=== PATIENT | female | born 1940 | race Caucasian/White ===

== ENCOUNTER → 2018-10-09 | Outpatient (CLI) | payer MEDICARE ==
--- NOTE | 2018-10-10 11:56 | BD ---
EXAMINATION TYPE: Axial Bone Density DATE OF EXAM: 10/09/2018 COMPARISON: NONE CLINICAL HISTORY: Z 78.0 Height: 61 inches Weight: 175 FRAX RISK QUESTIONS: Alcohol (3 or more units per day): no Family History (Parent hip fracture): no Glucocorticoids (More than 3mos): no (Ex: prednisone, prednisolone, methylprednisolone, dexamethasone, and hydrocortisone). History of Fracture in Adulthood: yes, ribs from [facility] in 1993 Secondary Osteoporosis: 1. Type 1 Diabetes: no 2. Hyperthyroidism: no 3. Menopause before 45: no 4. Malnutrition: no 5. Chronic liver disease: no Rheumatoid Arthritis: no Current Tobacco Use: no RISK FACTORS HISTORY OF: Family History of Osteoporosis: unknown Active: yes Diet low in dairy products/other sources of calcium: at least one serving a day Postmenopausal woman: no Take estrogen and/or progesterone medications: no Lost more than 2 inches in height since high school: yes Frequent falls: no Poor Health: no Hyperparathyroidism: no Adrenal Insufficiency: no MEDICATIONS: Prednisone or other steroids: no Thyroid Medications: no Osteoporosis Medications: no Additional Medications: Celebrex Additional History: osteoarthritis EXAM MEASUREMENTS: Bone mineral densitometry was performed using the [employer] System. Bone mineral density as measured about the Lumbar spine is: ----- L1-L4(G/cm2): 1.305 T Score Values are as follows: ----- L2: 0.4 ----- L3: 1.4 ----- L4: 2.3 ----- L1-L4: 1.0 Bone mineral density not previously done at this facility Bone mineral density about the R hip (g/cm2): 0.736 Bone mineral density about the L hip (g/cm2): 0.768 T Score values are as follows: -----R Neck: -2.2 -----L Neck: -1.9 -----R Total: -1.2 -----L Total: -1.0 Bone mineral density not previously done at this facility IMPRESSION: Osteopenia (T Score between -2.5 and -1). There is slightly increased risk of fracture and the patient may be considered for treatment. Re-Screen 2-5 years. NOTE: T-SCORE=SD OF THE YOUNG ADULT MEAN.
--- NOTE | 2018-10-12 13:14 | MM ---
Reason for exam: screening (asymptomatic). Last mammogram was performed 3 years and 3 months ago. History: Patient is postmenopausal. Physical Findings: A clinical breast exam by your physician is recommended on an annual basis and results should be correlated with mammographic findings. MG 3D Screening Mammo W/Cad Bilateral CC and MLO view(s) were taken. Prior study comparison: July 10, 2015, mammogram, performed at [facility]. July 31, 2013, mammogram, performed at [facility]. The breast tissue is heterogeneously dense. This may lower the sensitivity of mammography. There is chronic nodularity in the left breast. There is no discrete abnormality. ASSESSMENT: Benign, BI-RAD 2 RECOMMENDATION: Routine screening mammogram of both breasts in 1 year.
== END | disposition home or self-care (01) ==
LOC: RADMAMWWP 13:17
PROVIDERS: ATTEND Internal Medicine
DX: Z12.31 Encounter for screening mammogram for malignant neoplasm of breast (principal); M85.80 Other specified disorders of bone density and structure, unspecified site; Z78.0 Asymptomatic menopausal state
CPT/HCPCS: 77063; 77067; 77080

== ENCOUNTER → 2018-11-23 | Outpatient (CLI) | payer MEDICARE ==
[2018-11-23 13:53] LABS: Basophils % (A) 0 %; Eosinophils # (A) 0.2 k/uL (0-0.7); Eosinophils % (A) 1 %; HCT 41.5 % (34.0-46.0); HGB 13.8 gm/dL (11.4-16.0); Lymphocytes # (A) 2.9 k/uL (1.0-4.8); Lymphocytes % (A) 25 %; MCH 30.6 pg (25.0-35.0); MCHC 33.3 g/dL (31.0-37.0); MCV 91.7 fL (80.0-100.0); Mean Platelet Volume 6.6; Monocytes # (A) 0.6 k/uL (0-1.0); Monocytes % (A) 5 %; Neutrophils # (A) 7.7 k/uL (1.3-7.7); Neutrophils % (A) 66 %; Platelet Count 327 k/uL (150-450); RBC 4.52 m/uL (3.80-5.40); RDW 12.7 % (11.5-15.5); WBC 11.6 k/uL (3.8-10.6)
[2018-11-23 14:03] LABS: INR 0.9 (<1.2)
[2018-11-23 14:14] LABS: Potassium 4.4 mmol/L (3.5-5.1)
== END | disposition home or self-care (01) ==
LOC: LABPAT 13:23
PROVIDERS: ATTEND Orthopaedic Surgery
DX: Z01.812 Encounter for preprocedural laboratory examination (principal); M17.12 Unilateral primary osteoarthritis, left knee; Z79.01 Long term (current) use of anticoagulants
CPT/HCPCS: 36415; 80051; 85025; 85610; 87070

== ENCOUNTER 2018-11-28 10:00 | Day surgery (SDC) | payer MEDICARE ==
--- NOTE | 2018-11-27 09:42 | HP ---
HISTORY AND PHYSICAL CHIEF COMPLAINT: Left knee pain. HISTORY OF PRESENT ILLNESS: The patient is a 78-year-old retired female who presents with progressive left knee pain over the past several years. It has worsened recently. She is having pain that limits her normal function and activities. She has tried medications in addition to previous injections. PAST MEDICAL HISTORY: Significant for arthritis, heart murmur, and hypertension. PAST SURGICAL HISTORY: Significant for right total knee arthroplasty. CURRENT MEDICATIONS: 1. Celebrex. 2. Simvastatin. 3. Avalide. ALLERGIES: She denies drug allergies. FAMILY HISTORY: Family history is negative. SOCIAL HISTORY: Social history is negative for current tobacco or alcohol use. REVIEW OF SYSTEMS: Sixteen point review of systems otherwise reviewed and is noncontributory. PHYSICAL EXAMINATION: On examination, this patient is approximately 5 feet 1 inch, 177 pounds of endomorphic habitus. HEENT exam is nonfocal. Neck is supple. She has painless passive motion of the left hip. Straight leg raise is negative. Active motion left knee -12 to 100 degrees of flexion. She is tender about the medial joint line. She has a mild effusion. Collaterals are stable, Kaila is negative, Wm's is equivocal. She has genu varum alignment. She has an antalgic gait pattern. Her distal neurovascular exam appears intact in the left lower extremity. Previous x-rays of the left knee obtained in the office show severe tricompartmental osteoarthrosis. IMPRESSION: Left knee severe tricompartmental osteoarthrosis-symptomatic. RECOMMENDATIONS: I talked to the patient at length regarding her condition along with treatment options. At this point, she is quite symptomatic and opts to proceed with surgery. We will plan to proceed with left total knee arthroplasty. We will institute DVT prophylaxis postoperatively. Risks and benefits were discussed at length in layman's terms. MMODL / IJN: [id number] /
[~2018-11-28 10:00] MED LIST: ACETAMINOPHEN TAB 500 MG TAB PO ONE; DEXAMETHASONE SOD PHOSPHATE 10 MG/ML 1 ML VIAL IV ONE; LIDOCAINE 1% 20 ML VIAL (10MG/ML) FOR IV START INTRADERMA PRN; MELOXICAM 7.5 MG TAB PO ONE; MIDAZOLAM 2 MG/2 ML VIAL IV PRN; ONDANSETRON 4 MG/2 ML VIAL IVP ONE; SCOPOLAMINE 1.5MG/72HR PATCH TRANSDERM ONE; TRANEXAMIC ACID 1,000 MG in SODIUM CHLORIDE 0.9% 100 ML IVPB ONE
[2018-11-28] MEDS: LACTATED RINGERS 1,000 ML IV SCH (10:46)
[2018-11-28] MEDS ORDERED: MIDAZOLAM (PF) 2 MG/2 ML VIAL IV ONE (10:50)
--- NOTE | 2018-11-28 11:35 | P.ANPRN ---
Procedure Note - Anesthesia - Nerve Block Performed Left Adductor Canal Infusion Time Out Performed: Yes Date of Procedure: 11/28/18 Procedure Start Time: 10:43 Procedure Stop Time: 10:55 Location of Patient Procedure: PreOp Indication: Acute Post-Operative Pain, Requested by Surgeon Sedation Type: Sedate with meaningful contact maintained Preparation: Sterile Prep, Sterile Dressing Position: Supine Catheter: Indwelling Needle Types: Pajunk Needle Gauge: 18 Ultrasound used to visualize needle placement: Yes Ultrasound used to observe medication spread: Yes Injectate: 0.5% Ropivacaine (see comment for volume) (20 ml) Blood Aspirated: No Pain Paresthesia on Injection Noted: No Resistance on Injection: Normal Image Stored and Saved: Yes Events: Uneventful and Well Tolerated
[2018-11-28] MEDS ORDERED: ROPIVACAINE 0.2%-NS ON-Q PUMP 1,090 MG, EMPTY PAIN BALL 1 EACH MISCELLANE PRN (11:43)
[2018-11-28] MEDS ORDERED: MIDAZOLAM 2 MG/2 ML VIAL ONE (12:48)
[2018-11-28] MEDS ORDERED: TRANEXAMIC ACID 1,000 MG/10 ML VIAL ONE (12:48)
[2018-11-28] MEDS ORDERED: PROPOFOL 10 MG/ML 20 ML VIAL IV ONE (12:48)
[2018-11-28] MEDS ORDERED: SODIUM CHLORIDE 0.9% 100 ML BAG ONE (12:48)
[2018-11-28] MEDS ORDERED: ceFAZolin 3,000 MG in SODIUM CHLORIDE 0.9% IRRIGATIO 3,000 ML IRRIGATION ONE (13:52)
[2018-11-28] MEDS ORDERED: ROPIVACAINE 246.25 MG, EPINEPHrine 0.5 MG, KETOROLAC 30 MG, cloNIDine HCL/PF 80 MCG, WA... MISCELLANE ONE ×5 (13:54)
[2018-11-28] MEDS ORDERED: LACTATED RINGERS 1,000 ML IV ONE ×2 (14:31)
[2018-11-28] MEDS ORDERED: ACETAMINOPHEN TAB 325 MG TAB PO PRN (14:39)
[2018-11-28] MEDS ORDERED: MAGNESIUM HYDROXIDE 2,400 MG/10 ML CUP PO PRN (14:39)
[2018-11-28] MEDS ORDERED: traMADol 50 MG TAB PO PRN (14:39)
[2018-11-28] MEDS ORDERED: NALOXONE 0.4 MG/ML 1 ML VIAL IV PRN (14:39)
[2018-11-28] MEDS ORDERED: HYDROmorphone 0.5 MG/0.5 ML SYRINGE IVP PRN ×2 (14:39)
[2018-11-28] MEDS ORDERED: ONDANSETRON 4 MG/2 ML VIAL IVP PRN (14:39)
[2018-11-28] MEDS ORDERED: HYDROcodone/APAP 5-325MG 1 EACH TAB PO PRN (14:39)
--- NOTE | 2018-11-28 15:04 | P.OP ---
Date of Procedure: 11/28/18 Preoperative Diagnosis: Left knee severe tricompartmental osteoarthrosis Postoperative Diagnosis: Same Procedure(s) Performed: Left total knee arthroplastycementedcruciate retaining Implants: Depuy Attune size 5 cemented femoral component, size 4 cemented tibial component, 9 mm articular surface, 32 mm cemented patellar component. This was a cruciate retaining implant. Anesthesia: regional, local, spinal Surgeon: Wale Julio Superintendent House #1: Jac Lofton Estimated Blood Loss (ml): 50 Pathology: other (Bone fragments) Condition: stable Disposition: PACU Indications for Procedure: The patient's a 78-year-old female who presents with progressive left knee pain secondary to osteoarthrosis despite conservative measures. A discussion of the risks and benefits of operative intervention versus continued conservative m easures was made with the patient. She opted to proceed with surgery. Operative risks to include infection, neurovascular injury, development of blood clots, possible component loosening, possible component failure and need for subsequent procedures was discussed. Informed consent was obtained. Operative Findings: As below Description of Procedure: The patient was brought to the operating room, and after induction of spinal anesthesia the left lower extremity was prepped and draped in a normal fashion. The tourniquet was inflated to 270 mmHg. A longitudinal incision extending 3 finger breaths above the superior pole of the patella extending to the medial aspect the tibial tubercle was then made. The skin and subcutaneous tissues were divided sharply. Electrocautery was used for hemostasis. A medial parapatellar arthrotomy was then performed. The medial soft tissues to include the superficial and deep portions of the medial collateral ligament as well as the medial hamstring tendons were elevated subperiosteally. The proximal medial tibia osteophytes were carefully removed. The patella was everted. The knee was flexed. A portion of the retropatellar fat pad was excised sharply. The anterior cruciate ligament was sacrificed. A starting hole was made in the distal femur 1 cm anterior to the posterior cruciate origin. An intramedullary femoral guide was gently inserted planning on 5 valgus distal cut with 9 mm distal resection. The cutting block was pinned in place. The distal cut was then made. The posterior referencing sizing guide was utilized. 3 of external rotation was built into the system and verified off the trans- epicondylar axis and the posterior condyles. I felt size 5 was most ap propriate. The cutting block was pinned in place. The anterior, posterior, and chamfer cuts were then made. The bone fragments were removed. A sulcus cut was then made with the appropriate guide. The trial size 4 femoral component was then placed and was fully seated. There was good anterior to posterior and medial to lateral fit. The distal peg holes were then drilled. The trial component was then removed. Attention was then paid towards preparing the proximal tibia. An extra medullary guide was utilized in line with the tibial shaft and second metatarsal distally. A 7 posterior slope was planned. I planned on 2 mm resection from the medial compartment. The cutting block was pinned in place. The proximal tibial cut was then made. The bone was removed in one fragment. The remnants of the medial and lateral menisci were excised the capsule junction with electrocautery. The tibia sized most appropriately at size 4. The posterior osteophytes off the distal femur were carefully removed with a curved osteotome. The trial tibial and femoral components were placed along with a 9 millimeters articular surface. I was able to obtain full flexion and extension with good stability with varus and valgus stress. After several flexion and extension cycles, the tibial rotation was marked with electrocautery in line with the medial one third of the tibial tubercle. Attention was then paid towards preparing the patella. A patella reamer was utilized taking this down to 14 mm of bone stock. A good flush cut was made. The patella sized most appropriately at 32 millimeters. The peg holes were then drilled. The trial component was placed. The knee was taken through a range of motion. I had good patellofemoral tracking with no hands technique. The trial components were then removed. The tibia was prepared in the appropriate rotation with appropriate drill and keel punch. The flexion and extension gaps were checked and felt to be symmetric. The posterior soft tissues were injected with ropivacaine. The bony surfaces were prepared with pulsatile lavage and dried. The deep tibial component was then cemented in place and was fully seated. Excess cement was removed. The femoral component was cemented in place and was fully seated. Again excess cement was removed. The trial 9 millimeters surface was then inserted in the knee was put in full extension. The patella component was cemented in place. After the cement had sufficiently hardened, the knee was again taken through a range of motion. Again there was good stability in flexion and extension with varus and valgus stress. The trial articular surface was then removed. The final articular surface was placed and was impacted. Care was taken to avoid any soft tissue interposition. Pulsatile lavage was again utilized. The tourniquet was deflated with approximately 65 minutes total tourniquet time. There was minimal drainage therefore a deep drain was not placed. The medial parapatellar arthrotomy was then closed with #2 Ethibond suture. The subcutaneous tissues were reapproximated interrupted 2-0 Vicryl sutures. The skin was reapproximated with 3-0 subarticular strata fix suture. Skin tape and adhesive was applied. A sterile dressing was applied. The patient was then awoken from sedation and transferred to recovery room in good condition. Blood loss was estimated at 50 milliliters. No complications were incurred. Sponge and needle counts were correct at the end the case. Skyler HOLGUIN assisted during the major components this case to include exposure, b one resection, and implantation.
--- NOTE | 2018-11-28 15:34 | XR ---
EXAMINATION TYPE: XR knee limited LT DATE OF EXAM: 11/28/2018 COMPARISON: NONE HISTORY: 78-year-old female evaluation for postoperative abnormality in alignment TECHNIQUE: 2 views FINDINGS: Images show placement of left total knee arthroplasty. Distal femoral and proximal tibial components of prosthesis are well seated without periprosthetic fracture. Alignment grossly anatomic. Anterior s oft tissue swelling with soft tissue air as well as its intra-articular air in joint fluid relating t o recent operation. IMPRESSION: Uncomplicated postoperative appearance left total knee arthroplasty.
[2018-11-28] MEDS: HYDROmorphone 0.5 MG/0.5 ML SYRINGE IVP PRN ×3 (15:36→16:05)
[2018-11-28 17:02] VITALS: BMI 32.8
--- NOTE | 2018-11-28 18:31 | P.CONS ---
History of Present Illness - Reason for Consult Consult date: 11/28/18 Medical management of hypertension and hyperlipidemia Requesting physician: Wale Julio - Chief Complaint Medical management of hypertension and hyperlipidemia - History of Present Illness The patient is a 78-year-old female with a past medical history of essential hypertension, dyslipidemia, severe left knee osteoarthritis that is currently admitted to primary orthopedic service under Dr. Julio and is postop day #0 after having a left total knee arthroplasty secondary to left knee severe tricompartmental osteoarthrosis. The patient doing well postop and only complains of mild tenderness in her knee, she denies any chest pain shortness of breath, she denies any nausea vomiting or abdominal pain. Patient previously had a right total knee and did well with that and fully expects to be able to go home to have home PT. Review of records indicate the patient's blood pressure is stable and controlled, currently receiving perioperative antibiotics with cefazolin, with Dilaudid and [place] as needed for pain and currently has a nerve block in the left adductor canal done by anesthesia for pain Review of Systems Pertinent positives per HPI other systems were negative Past Medical History Past Medical History: Hyperlipidemia, Hypertension, Osteoarthritis (OA) Additional Past Medical History / Comment(s): Heart murmur. "Borderline sugars, no treatment" History of Any Multi-Drug Resistant Organisms: None Reported Past Surgical History: Joint Replacement Additional Past Surgical History / Comment(s): Partial hysterectomy, right knee replacement. Past Anesthesia/Blood Transfusion Reactions: No Reported Reaction Past Psychological History: No Psychological Hx Reported Smoking Status: Never smoker Past Alcohol Use History: Occasional Past Drug Use History: None Reported - Past Family History Mother Family Medical History: No Reported History Medications and Allergies Home Medications Medication Instructions Recorded Confirmed Type Celecoxib [CeleBREX] 200 mg PO DAILY 11/24/18 11/24/18 History Irbesartan/Hydrochlorothiazide 1 each PO QAM 11/24/18 11/24/18 History [Irbesartan-Hctz 150-12.5 mg Tb] Simvastatin [Zocor] 20 mg PO QAM 11/24/18 11/24/18 History Vitamin D Gummies 1,000 units PO DAILY 11/24/18 11/24/18 History Allergies Allergy/AdvReac Type Severity Reaction Status Date / Time No Known Allergies Allergy Verified 11/24/18 10:21 Physical Exam Vitals: Vital Signs Temp Pulse Resp BP Pulse Ox 11/28/18 16:00 52 L 16 145/73 97 11/28/18 15:50 51 L 16 141/67 97 11/28/18 15:45 52 L 16 160/84 97 11/28/18 15:30 61 15 153/75 93 L 11/28/18 15:15 59 L 16 150/76 96 11/28/18 15:02 97.1 F L 58 L 16 145/74 100 11/28/18 11:19 60 16 122/60 95 11/28/18 10:24 97.8 F 72 20 129/70 95 Intake and Output 11/28/18 11/28/18 11/28/18 06:59 14:59 22:59 Intake Total 1251 0 Output Total 50 Balance 1201 0 Intake: IV 1251 0 Output: Estimated Blood Loss 50 Other: Weight 80.286 kg Constitutional: No acute distress, conversant, pleasant Eyes: Anicteric sclerae, moist conjunctiva, no lid-lag, PERRLA ENMT: NC/AT,Oropharynx clear, no erythema, exudates Neck:Supple, FROM, no masses, or JVD, No carotid bruits; No thyromegaly Lungs: Clear to auscultation, Clear to percussion, Normal respiratory effort, no accessory muscle use Cardiovascular: Heart regular in rate and rhythm, No murmurs, gallops, or rubs no peripheral edema Abdominal: Soft Nontender, nom distended, no guarding, no rebound or rigidity, Normoactive bowel sounds No hepatomegaly, No splenomegaly, No palpable mass No abdominal wall hernia noted Skin: Normal temperature, tone, texture, turgor, No induration No subcutaneous nodules, No rash, lesions, No ulcers Extremities:No digital cyanosis No clubbing, Pedal pulses intact and symm etrical Radial pulses intact and symmetrical Normal gait and station, No calf tenderness Psychiatric: Alert and oriented to person, place and time, Appropriate affect Intact judgement Neuro: Muscles Strength 5/5 in all 4 extremities, Sensation to light touch grossly present throughout, Cranial nerves II-XII grossly intact. No focal sensory deficits Assessment and Plan (1) Essential hypertension Current Visit: Yes Status: Acute Code(s): I10 - ESSENTIAL (PRIMARY) HYPERTENSION SNOMED Code(s): 02316294 (2) Hyperlipidemia Current Visit: Yes Status: Acute Code(s): E78.5 - HYPERLIPIDEMIA, UNSPECIFIED SNOMED Code(s): 91564623 (3) Status post total left knee replacement Current Visit: Yes Status: Acute Code(s): Z96.652 - PRESENCE OF LEFT ARTIFICIAL KNEE JOINT SNOMED Code(s): 3759555040843 Plan: The patient is admitted to the primary orthopedic service and is postop day #0 status post left knee arthroplasty secondary to severe left knee osteoarthrosis. We'll defer to primary team regarding ongoing analgesic therapy patient currently on Dilaudid and [place] with left adductor canal nerve block. Hemodynamically the patient is stable, we'll resume her home hypertensive regim en. The patient is continued on DOAC for DVT prophylaxis. Continue to follow along with you. Appreciate opportunity to be involved in the ongoing care of this patient. For further questions please hesitate to contact us on inpatient team Time with Patient: Greater than 30
[2018-11-28] MEDS ORDERED: SENNOSIDES-DOCUSATE SODIUM 1 EACH TAB PO SCH (21:00)
[2018-11-29] MEDS: LACTATED RINGERS 1,000 ML IV SCH (01:47)
[2018-11-29] MEDS: HYDROcodone/APAP 5-325MG 1 EACH TAB PO PRN ×2 (05:18→11:09)
[2018-11-29 07:56] LABS: Basophils % (A) 0 %; Eosinophils # (A) 0.1 k/uL (0-0.7); Eosinophils % (A) 0 %; HCT 35.3 % (34.0-46.0); HGB 11.8 gm/dL (11.4-16.0); Lymphocytes # (A) 2.1 k/uL (1.0-4.8); Lymphocytes % (A) 13 %; MCH 30.3 pg (25.0-35.0); MCHC 33.5 g/dL (31.0-37.0); MCV 90.4 fL (80.0-100.0); Mean Platelet Volume 6.4; Monocytes % (A) 7 %; Neutrophils # (A) 12.7 k/uL (1.3-7.7); Neutrophils % (A) 79 %; Platelet Count 290 k/uL (150-450); RDW 12.4 % (11.5-15.5); WBC 16.1 k/uL (3.8-10.6)
[2018-11-29 08:21] VITALS: RESP 16; TEMP 97.9
--- NOTE | 2018-11-29 08:25 | P.PN ---
Progress Note - Text Progress Note Date: 11/29/18 Patient without complaints. Pain controlled. Denies leg weakness. VSS Catheter site clean and dry A/P POD#1 s/p Left TKA with adductor catheter - doing well
[2018-11-29] MEDS ORDERED: ATORVASTATIN 10 MG TAB PO SCH (09:00)
[2018-11-29] MEDS ORDERED: RIVAROXABAN 10 MG TAB PO SCH (09:00)
[2018-11-29] MEDS ORDERED: LOSARTAN-HCTZ 50-12.5 MG 1 EACH TAB PO SCH (09:00)
--- NOTE | 2018-11-29 11:26 | P.PN ---
Subjective Progress Note Date: 11/29/18 Principal diagnosis: Status post left total knee arthroplasty Patient was evaluated at bedside, she's resting comfortably. Her pain is well- controlled. She is done well with physical therapy. She denies chest pain or shortness of breath Objective - Vital Signs Vital signs: Vital Signs Temp 97.9 F 11/29/18 07:31 Pulse 75 11/29/18 07:31 Resp 16 11/29/18 07:31 BP 151/72 11/29/18 07:31 Pulse Ox 95 11/29/18 07:31 Intake & Output 11/28/18 11/29/18 11/29/18 18:59 06:59 18:59 Intake Total 1251 Output Total 50 Balance 1201 Weight 80.286 kg Intake: IV 1251 Output: Estimated Blood Loss 50 Other: # Voids 1 - Exam Left lower extremity: Incision is clean, dry, and intact. The exofin fusion tape is in good condition. There is minimal soft tissue swelling and ecchymosis surrounding the medial and lateral aspects of the incision. Calf is soft, no tenderness with palpation. Plantar flexion, dorsiflexion, EHL, FHL are intact. Sensory exam to light touch throughout the extremity is intact, dorsal pedis pulses 2+. - Labs CBC & Chem 7: 11/29/18 07:34 Labs: Abnormal Lab Results - Last 24 Hours (Table) 11/29/18 Range/Units 07:34 WBC 16.1 H (3.8-10.6) k/uL Neutrophils # 12.7 H (1.3-7.7) k/uL Assessment and Plan Plan: Assessment: Postoperative day 1 status post left total knee arthroplasty Plan: Pain control, plan for discharge home on oral medication GI and DVT prophylaxis, plan for discharge on Eliquis 2.5mg bid for 2 weeks Wound care instructions discussed Home care nursing and physical therapy after discharge Medical recommendations Discharge planning: Patient will be discharged home today Time with Patient: Less than 30
--- NOTE | 2018-11-29 11:32 | P.DS ---
Providers Date of admission: 11/28/2018 Expected date of discharge: 11/29/18 Attending physician: Wale Julio Consults: 11/28/18 14:39 Consult Physician Routine Consulting Provider: Marlon Ray Consult Reason/Comments: medical management Do you want consulting provider notified?: Yes Primary care physician: Elio Castillo [facility] Course: Date of admission: 11/28/2018 Date of discharge: 11/29/2018 Admission diagnosis: Status post left total knee arthroplasty Discharge diagnosis: Same Attending physician: Dr. Julio Surgical procedures: Left total knee arthroplasty Brief history: Patient is a 78-year-old female with a history of progressive primary left knee osteoarthritis. At this point patient has failed conservative treatment measures and has opted to proceed with a elective left total knee arthroplasty. Hospital course: Details of patient's surgery can be found in operative report. Patient tolerated the procedure well and was subsequently transported to or [facility] floor. Patient's orthopeidc and medical care was provided daily. Patient had daily laboratory tests performed for evaluation of overall blood counts. Patient had daily physical therapy to include strengthening range of motion as well as education with walker ambulation. Patient was treated with Xarelto for their postoperative DVT prophylaxis during their inpatient stay. Patient was noted to have a relatively uneventful postoperative course. Patient reported satisfactory pain control with oral pain medications by postoperative day 0. Patient showed satisfactory progress with physical therapy. Patient moved steadily through the program and had no difficulty meeting the goals by postoperative day 1. Given patient's otherwise satisfactory course and having met physical therapy goals, plan is to discharge patient home on postoperative day 1. Discharge condition/disposition: Patient will be discharged home in stable condition. Discharge medications: Instructions are given on resumption of patient's normal daily medications per primary care recommendation, in addition patient will be prescribed . Discharge instructions: 1. Wound care and infection precautions, keep incision dry and covered while showering, no lotions, creams, moisturizers. No soaking, tubs, pools, hottubs. Do not scrub over the incision. 2. Weight-bear as tolerated with walker / cane until follow-up. 3. Ice and elevate when necessary. Do not exceed 20 minutes per hour with ice pack. 4. Utilize compression sleeve until seen at first follow up appointment. 5. Visiting nursing care. 6. Home physical therapy. 7. Pain meds and anticoagulants per prescription. 8. Pain medication has potential to cause constipation. Increase oral fluid and fiber intake. Contact primary care provider if you have not had a bowel movement within 48 hours after discharge 9. No anti-inflammatory medication until discussed at first post operative visit, this including Motrin, Aleve, Mobic, Diclofenac. 10. Follow up in office at 2 weeks postop with Skyler Lofton PA-C 11. Follow up with your primary care doctor 7-10 days after discharge. 12. Contact [facility] with any questions, . Procedures: Left total knee arthroplasty Patient Condition at Discharge: Good Plan - Discharge Summary Discharge Rx Participant: Yes New Discharge Prescriptions: New Docusate [Colace] 100 mg PO DAILY #30 capsule Apixaban [Eliquis] 2.5 mg PO BID #60 tab Hydrocodone/Acetaminophen [[place] 5-325] 1 - 2 each PO Q6HR PRN #40 tab PRN Reason: Pain No Action Simvastatin [Zocor] 20 mg PO QAM Celecoxib [CeleBREX] 200 mg PO DAILY Vitamin D Gummies 1,000 units PO DAILY Irbesartan/Hydrochlorothiazide [Irbesartan-Hctz 150-12.5 mg Tb] 1 each PO QAM Discharge Medication List Celecoxib [CeleBREX] 200 mg PO DAILY 11/24/18 [History] Irbesartan/Hydrochlorothiazide [Irbesartan-Hctz 150-12.5 mg Tb] 1 each PO QAM 11/24/18 [History] Simvastatin [Zocor] 20 mg PO QAM 11/24/18 [History] Vitamin D Gummies 1,000 units PO DAILY 11/24/18 [History] Apixaban [Eliquis] 2.5 mg PO BID #60 tab 11/29/18 [Rx] Docusate [Colace] 100 mg PO DAILY #30 capsule 11/29/18 [Rx] Hydrocodone/Acetaminophen [[place] 5-325] 1 - 2 each PO Q6HR PRN #40 tab 11/29/18 [Rx] Follow up Appointment(s)/Referral(s): [facility], [NON-STAFF] - Jac Lofton PAC [PHYSICIAN ELECTRICIAN TELEPHONE] - 2 Weeks Activity/Diet/Wound Care/Special Instructions: Orthopedic Discharge Instructions: 1. Wound care and infection precautions, keep incision dry and covered while showering, no lotions, creams, moisturizers. No soaking, pools, hot tubs. Do not scrub over incision. 2. Weight-bear as tolerated with walker / cane until follow-up. 3. Ice and elevate when necessary. Do not exceed 20 minutes per hour with ice pack. 4. Utilize compression sleeve until seen at first follow up appointment. 5. Pain meds and anticoagulants per prescription. 6. Pain medication has potential to cause constipation. Increase oral fluid and fiber intake. Contact primary care provider if you have not had a bowel movement within 48 hours after discharge. 7. No anti-inflammatory medication until discussed at first post operative visit, this including Motrin, Aleve, Mobic, Diclofenac. 8. Follow up in office at 2 weeks postop with Skyler Lofton PA-C 9. Follow up with your primary care doctor 7-10 days after discharge. 10. Contact [facility] with any questions, . Discharge Disposition: HOME WITH HOME HEALTH SERVICES
--- NOTE | 2018-11-29 12:50 | P.PN ---
Subjective Progress Note Date: 11/29/18 Patient seen and examined and follow-up, doing much better today. Reporting that she's been up and and with her the walker ambulating to the bathroom and back and down the halls, and catheter in place reporting that her pain is controlled with [place]. No acute events overnight denies chest pain or shortness of breath Objective - Vital Signs Vital signs: Vital Signs Temp 97.9 F 11/29/18 07:31 Pulse 75 11/29/18 07:31 Resp 16 11/29/18 07:31 BP 151/72 11/29/18 07:31 Pulse Ox 95 11/29/18 07:31 Intake & Output 11/28/18 11/29/18 11/29/18 18:59 06:59 18:59 Intake Total 1251 Output Total 50 Balance 1201 Weight 80.286 kg Intake: IV 1251 Output: Estimated Blood Loss 50 Other: # Voids 1 - Exam Constitutional: No acute distress, conversant, pleasant Eyes: Anicteric sclerae, moist conjunctiva, no lid-lag, PERRLA ENMT: NC/AT,Oropharynx clear, no erythema, exudates Neck:Supple, FROM, no masses, or JVD, No carotid bruits; No thyromegaly Lungs: Clear to auscultation, Clear to percussion, Normal respiratory effort, no accessory muscle use Cardiovascular: Heart regular in rate and rhythm, No murmurs, gallops, or rubs no peripheral edema Abdominal: Soft Nontender, nom distended, no guarding, no rebound or rigidity, Normoactive bowel sounds No hepatomegaly, No splenomegaly, No palpable mass No abdominal wall hernia noted Skin: Normal temperature, tone, texture, turgor, No induration No subcutaneous nodules, No rash, lesions, No ulcers Extremities:No digital cyanosis No clubbing, Pedal pulses intact and symmetrical Radial pulses intact and symmetrical Normal gait and station, No calf tenderness Psychiatric: Alert and oriented to person, place and time, Appropriate affect Intact judgement Neuro: Muscles Strength 5/5 in all 4 extremities, Sensation to light touch grossly present throughout, Cranial nerves II-XII grossly intact. No focal sensory deficits - Labs CBC & Chem 7: 11/29/18 07:34 Labs: Abnormal Lab Results - Last 24 Hours (Table) 11/29/18 Range/Units 07:34 WBC 16.1 H (3.8-10.6) k/uL Neutrophils # 12.7 H (1.3-7.7) k/uL Assessment and Plan (1) Essential hypertension Narrative/Plan: * Blood pressure stable and controlled * Continue current regimen Current Visit: Yes Status: Acute Code(s): I10 - ESSENTIAL (PRIMARY) HYPERTENSION SNOMED Code(s): 83176518 (2) Hyperlipidemia Narrative/Plan: * Continue current regimen stable and controlled Current Visit: Yes Status: Chronic Code(s): E78.5 - HYPERLIPIDEMIA, UNSPECIFIED SNOMED Code(s): 29065643 (3) Status post total left knee replacement Narrative/Plan: * Defer postoperative care to primary orthopedic service Current Visit: Yes Status: Acute Code(s): Z96.652 - PRESENCE OF LEFT ARTIFICIAL KNEE JOINT SNOMED Code(s): 4805333592601 Plan: Patient doing well medically stable for discharge we'll sign off today
[2018-11-29 13:31] VITALS: BP 113/53; PULSE 57
== END 2018-11-29 14:38 | disposition home health service (06) ==
LOC: OR 10:00 → 4SSUR 14:59 → OR 11-29 14:38
PROVIDERS: ATTEND Orthopaedic Surgery
DX: M17.12 Unilateral primary osteoarthritis, left knee (principal); I10 Essential (primary) hypertension; E78.5 Hyperlipidemia, unspecified; Z79.1 Long term (current) use of non-steroidal anti-inflammatories (NSAID); Z79.899 Other long term (current) drug therapy; Z90.710 Acquired absence of both cervix and uterus; R01.1 Cardiac murmur, unspecified; Z96.651 Presence of right artificial knee joint; R32 Unspecified urinary incontinence; Z86.010 Personal history of colon polyps; R73.01 Impaired fasting glucose; E66.9 Obesity, unspecified; K25.9 Gastric ulcer, unspecified as acute or chronic, without hemorrhage or perforation; Z68.33 Body mass index [BMI] 33.0-33.9, adult; Z82.5 Family history of asthma and other chronic lower respiratory diseases; Z83.3 Family history of diabetes mellitus; Z82.49 Family history of ischemic heart disease and other diseases of the circulatory system; Z97.2 Presence of dental prosthetic device (complete) (partial)
CPT/HCPCS: 27447; 97161; 64448; 76942; 85025; 88300; 73560; C1713; C1776; J2250 ×2; J0171; J1100; J0690 ×3; J2405; J1885; J2795 ×2; J2704; J0735; J1170 ×2

== ENCOUNTER → 2021-10-14 | Outpatient (CLI) | payer MEDICARE ==
[2021-10-14 17:06] LABS: Basophils % (A) 1 %; Eosinophils # (A) 0.1 k/uL (0-0.7); Eosinophils % (A) 2 %; Lymphocytes # (A) 1.9 k/uL (1.0-4.8); Lymphocytes % (A) 27 %; MCH 30.9 pg (25.0-35.0); MCHC 33.3 g/dL (31.0-37.0); MCV 92.7 fL (80.0-100.0); Monocytes # (A) 0.4 k/uL (0-1.0); Monocytes % (A) 5 %; Neutrophils # (A) 4.7 k/uL (1.3-7.7); Neutrophils % (A) 65 %; Platelet Count 353 k/uL (150-450); RDW 12.3 % (11.5-15.5); WBC 7.2 k/uL (3.8-10.6)
== END | disposition home or self-care (01) ==
LOC: LABWHC1 16:18
PROVIDERS: ATTEND Internal Medicine
DX: R79.89 Other specified abnormal findings of blood chemistry (principal); R82.90 Unspecified abnormal findings in urine
CPT/HCPCS: 36415; 85025; 87086

== ENCOUNTER 2023-06-18 10:41 | Inpatient (IN) | payer MEDICARE ==
--- NOTE | 2023-06-18 11:08 | ED ---
General Adult HPI - General Chief complaint: Abdominal Pain Stated complaint: ABD PAIN Time Seen by Provider: 06/18/23 10:45 Source: patient, RN notes reviewed, old records reviewed Mode of arrival: ambulatory Limitations: no limitations - History of Present Illness Initial comments: This is an 83-year-old female who presents to the emergency department complaining of abdominal pain for 3 weeks. Patient states it is in the upper abdomen bilaterally. Patient states she has been nauseated but only vomited once today and no longer is nauseated. Patient denies any diarrhea. Patient states the pain radiates to her back. Patient denies any chest pain difficult breathing shortness of breath. Patient denies any fever chills or cough. Patient denies any lower abdominal pain - Related Data Home Medications Medication Instructions Recorded Confirmed Celecoxib [CeleBREX] 200 mg PO DAILY 11/24/18 11/24/18 Irbesartan/Hydrochlorothiazide 1 each PO QAM 11/24/18 11/24/18 [Irbesartan-Hctz 150-12.5 mg Tb] Simvastatin [Zocor] 20 mg PO QAM 11/24/18 11/24/18 Vitamin D Gummies 1,000 units PO DAILY 11/24/18 11/24/18 Previous Rx's Medication Instructions Recorded Apixaban [Eliquis] 2.5 mg PO BID #60 tab 11/29/18 Docusate [Colace] 100 mg PO DAILY #30 capsule 11/29/18 Hydrocodone/Acetaminophen [[place] 1 - 2 each PO Q6HR PRN #40 tab 11/29/18 5-325] Allergies Allergy/AdvReac Type Severity Reaction Status Date / Time No Known Allergies Allergy Verified 06/18/23 10:47 Review of Systems ROS Statement: Those systems with pertinent positive or pertinent negative responses have been documented in the HPI. ROS Other: All systems not noted in ROS Statement are negative. Past Medical History Past Medical History: Hyperlipidemia, Hypertension, Osteoarthritis (OA) Additional Past Medical History / Comment(s): Heart murmur. "Borderline sugars, no treatment" History of Any Multi-Drug Resistant Organisms: None Reported Past Surgical History: Joint Replacement Additional Past Surgical History / Comment(s): Partial hysterectomy, right knee replacement. Past Anesthesia/Blood Transfusion Reactions: No Reported Reaction Past Psychological History: No Psychological Hx Reported Smoking Status: Never smoker Past Alcohol Use History: Occasional Past Drug Use History: None Reported - Past Family History Mother Family Medical History: No Reported History General Exam - General Exam Comments Initial Comments: GENERAL: Patient is well-developed and well-nourished. Patient is nontoxic and well- hydrated and is in mild distress. ENT: Neck is soft and supple. No significant lymphadenopathy is noted. Oropharynx is clear. Moist mucous membranes. Neck has full range of motion without eliciting any pain. EYES: The sclera were anicteric and conjunctiva were pink and moist. Extraocular movements were intact and pupils were equal round and reactive to light. Eyelids were unremarkable. PULMONARY: Unlabored respirations. Good breath sounds bilaterally. No audible rales rhonchi or wheezing was noted. CARDIOVASCULAR: There is a regular rate and rhythm without any murmurs gallops or rubs. ABDOMEN: Mild tenderness in the right epigastric and left upper quadrants SKIN: Skin is clear with no lesions or rashes and otherwise unremarkable. NEUROLOGIC: Patient is alert and oriented x3. Cranial nerves II through XII are grossly intact. Motor and sensory are also intact. Normal speech, volume and content. Symmetrical smile. MUSCULOSKELETAL: Normal extremities with adequate strength and full range of motion. No lower extremity swelling or edema. No calf tenderness. LYMPHATICS: No significant lymphadenopathy is noted PSYCHIATRIC: Normal psychiatric evaluation. Limitations: no limitations Course Vital Signs 06/18/23 06/18/23 06/18/23 10:43 12:34 12:38 Temperature 98.0 F Pulse Rate 67 60 63 Respiratory 18 16 20 Rate Blood Pressure 134/66 130/60 O2 Sat by Pulse 97 98 98 Oximetry Medical Decision Making - Medical Decision Making EKG is interpreted by myself EKG shows a sinus rhythm with an occasional PAC at 71 bpm parables 163 QRS is 86 QT interval 3 5 QTc is 408. Patient's EKG shows no ST segment elevation. Was pt. sent in by a medical professional or institution (, PA, TRACK INSPECTOR, urgent care, hospital, or skilled nursing...) When possible be specific @ -No Did you speak to anyone other than the patient for history (EMS, parent, family, police, friend...)? What history was obtained from this source @ -No Did you review nursing and triage notes (agree or disagree)? Why? @ -I reviewed and agree with nursing and triage notes Were old charts reviewed (outside hosp., previous admission, EMS record, old EKG, old radiological studies, urgent care reports/EKG's, skilled nursing records)? Report findings @ -No old charts were reviewed Differential Diagnosis (chest pain, altered mental status, abdominal pain women, abdominal pain men, vaginal bleeding, weakness, fever, dyspnea, syncope, hea dache, dizziness, GI bleed, back pain, seizure, CVA, palpatations, mental health, musculoskeletal)? @ -Differential Abdominal Pain Women: Appendicitis, Cholecystitis, diverticulosis, ischemic bowel, pancreatitis, hepatitis, UTI, gastroenteritis, AAA, incarcerated hernia, bowel obstruction, constipation, inflammatory bowel, hepatitis, peptic ulcer disease, splenic infarction, perforated viscus, vulvitis, ovarian torsion, PID, kidney stone, placenta abruption, this is not meant to be an all-inclusive list EKG interpreted by me (3pts min.). @ -As above X-rays interpreted by me (1pt min.). @ -None done CT interpreted by me (1pt min.). @ -On the CAT scan the patient had a 5 mm stone at the ureteropelvic junction with mild hydronephrosis on the left side U/S interpreted by me (1pt. min.). @ -None done What testing was considered but not performed or refused? (CT, X-rays, U/S, labs)? Why? @ -None What meds were considered but not given or refused? Why? @ -None Did you discuss the management of the patient with other professionals (professionals i.e. , PA, TRACK INSPECTOR, lab, RT, psych nurse, renal social worker, calender runner, teacher, community relations officer, casework specialist)? Give summary @ -I spoke with Dr. Shetty and he agreed to be on consult for this patient he will come in and try to remove the stone at this time. Was smoking cessation discussed for >3mins.? @ -No Was critical care preformed (if so, how long)? @ -35 minutes Were there social determinants of health that impacted care today? How? (Homelessness, low income, unemployed, alcoholism, drug addiction, transportation, low edu. Level, literacy, decrease access to med. care, nursing home, rehab)? @ -No Was there de-escalation of care discussed even if they declined (Discuss DNR or withdrawal of care, Hospice)? DNR status @ -No What co-morbidities impacted this encounter? (DM, HTN, Smoking, COPD, CAD, Cancer, CVA, ARF, Chemo, Hep., AIDS, mental health diagnosis, sleep apnea, morbid obesity)? @ -None Was patient admitted / discharged? Hospital course, mention meds given and route, prescriptions, significant lab abnormalities, going to OR and other pertinent info. @ -Patient had a urinary tract infection which I gave her 2 g of Rocephin for she also had a 5 mm stone on the left side causing mild hydronephrosis. Spoke with Dr. Crowell and he agreed to come and end and place a stent. Patient has had no history of any kidney stones. Patient will be admitted to [facility] hospitalist whom I spoke with and I then wrote admitting orders Undiagnosed new problem with uncertain prognosis? @ -No Drug Therapy requiring intensive monitoring for toxicity (Heparin, Nitro, Insulin, Cardizem)? @ -No Were any procedures done? @ -No Diagnosis/symptom? @ -Infected kidney stone Acute, or Chronic, or Acute on Chronic? @ -Acute Uncomplicated (without systemic symptoms) or Complicated (systemic symptoms)? @ -Complicated Side effects of treatment? @ -No Exacerbation, Progression, or Severe Exacerbation? @ -No Poses a threat to life or bodily function? How? (Chest pain, [place], [place], pneumonia, PE, COPD, DKA, ARF, appy, cholecystitis, CVA, Diverticulitis, Homicidal, Suicidal, threat to staff... and all critical care pts) @ -Yes this can lead to sepsis and endorgan dysfunction - Lab Data Result diagrams: 06/18/23 11:03 06/18/23 11:03 Lab Results 06/18/23 06/18/23 06/18/23 Range/Units 11:03 11:03 11:03 WBC 19.6 H (3.8-10.6) k/uL RBC 4.00 (3.80-5.40) m/uL Hgb 12.3 (11.4-16.0) gm/dL Hct 36.4 (34.0-46.0) % MCV 91.0 (80.0-100.0) fL MCH 30.7 (25.0-35.0) pg MCHC 33.8 (31.0-37.0) g/dL RDW 12.3 (11.5-15.5) % Plt Count 342 (150-450) k/uL MPV 8.0 Neutrophils % 87 % Lymphocytes % 5 % Monocytes % 5 % Eosinophils % 1 % Basophils % 0 % Neutrophils # 17.2 H (1.3-7.7) k/uL Lymphocytes # 1.1 (1.0-4.8) k/uL Monocytes # 0.9 (0-1.0) k/uL Eosinophils # 0.3 (0-0.7) k/uL Basophils # 0.0 (0-0.2) k/uL Sodium 132 L (137-145) mmol/L Potassium 4.0 (3.5-5.1) mmol/L Chloride 99 (98-107) mmol/L Carbon Dioxide 25 (22-30) mmol/L Anion Gap 8 mmol/L BUN 22 H (7-17) mg/dL Creatinine 1.00 (0.52-1.04) mg/dL Est GFR (CKD-EPI)AfAm 61 (>60 ml/min/1.73 sqM) Est GFR (CKD-EPI)NonAf 53 (>60 ml/min/1.73 sqM) Glucose 222 H (74-99) mg/dL Plasma Lactic Acid [place] 1.7 (0.7-2.0) mmol/L Calcium 10.1 (8.4-10.2) mg/dL Total Bilirubin 1.0 (0.2-1.3) mg/dL AST 22 (14-36) U/L ALT 22 (4-34) U/L Alkaline Phosphatase 85 (38-126) U/L Total Protein 6.3 (6.3-8.2) g/dL Albumin 3.6 (3.5-5.0) g/dL Amylase 51 (30-110) U/L Lipase 60 (23-300) U/L Urine Color Urine Appearance (Clear) Urine pH (5.0-8.0) Ur Specific [place] (1.001-1.035) Urine Protein (Negative) Urine Glucose (UA) (Negative) Urine Ketones (Negative) Urine Blood (Negative) Urine Nitrite (Negative) Urine Bilirubin (Negative) Urine Urobilinogen (<2.0) mg/dL Ur Leukocyte Esterase (Negative) Urine RBC (0-5) /hpf Urine WBC (0-5) /hpf Urine WBC Clumps (None) /hpf Ur Squamous Epith Cells (0-4) /hpf Urine Bacteria (None) /hpf Hyaline Casts (0-2) /lpf Urine Mucus (None) /hpf 06/18/23 Range/Units 13:33 WBC (3.8-10.6) k/uL RBC (3.80-5.40) m/uL Hgb (11.4-16.0) gm/dL Hct (34.0-46.0) % MCV (80.0-100.0) fL MCH (25.0-35.0) pg MCHC (31.0-37.0) g/dL RDW (11.5-15.5) % Plt Count (150-450) k/uL MPV Neutrophils % % Lymphocytes % % Monocytes % % Eosinophils % % Basophils % % Neutrophils # (1.3-7.7) k/uL Lymphocytes # (1.0-4.8) k/uL Monocytes # (0-1.0) k/uL Eosinophils # (0-0.7) k/uL Basophils # (0-0.2) k/uL Sodium (137-145) mmol/L Potassium (3.5-5.1) mmol/L Chloride (98-107) mmol/L Carbon Dioxide (22-30) mmol/L Anion Gap mmol/L BUN (7-17) mg/dL Creatinine (0.52-1.04) mg/dL Est GFR (CKD-EPI)AfAm (>60 ml/min/1.73 sqM) Est GFR (CKD-EPI)NonAf (>60 ml/min/1.73 sqM) Glucose (74-99) mg/dL Plasma Lactic Acid [place] (0.7-2.0) mmol/L Calcium (8.4-10.2) mg/dL Total Bilirubin (0.2-1.3) mg/dL AST (14-36) U/L ALT (4-34) U/L Alkaline Phosphatase (38-126) U/L Total Protein (6.3-8.2) g/dL Albumin (3.5-5.0) g/dL Amylase (30-110) U/L Lipase (23-300) U/L Urine Color Light Yellow Urine Appearance Cloudy H (Clear) Urine pH 5.0 (5.0-8.0) Ur Specific [place] 1.014 (1.001-1.035) Urine Protein Trace H (Negative) Urine Glucose (UA) 2+ H (Negative) Urine Ketones Negative (Negative) Urine Blood Moderate H (Negative) Urine Nitrite Positive H (Negative) Urine Bilirubin Negative (Negative) Urine Urobilinogen <2.0 (<2.0) mg/dL Ur Leukocyte Esterase Large H (Negative) Urine RBC 46 H (0-5) /hpf Urine WBC 39 H (0-5) /hpf Urine WBC Clumps Few H (None) /hpf Ur Squamous Epith Cells 2 (0-4) /hpf Urine Bacteria Many H (None) /hpf Hyaline Casts 1 (0-2) /lpf Urine Mucus Rare H (None) /hpf Disposition Clinical Impression: Kidney stone on left side, Urinary tract infection Disposition: ADMITTED IP TO THIS HOSP Referrals: Roosevelt Ngo MD [Primary Care Provider] - 1-2 days Time of Disposition: 15:23
[2023-06-18] MEDS: SODIUM CHLORIDE 0.9% 500 ML 500 ML IV STA (12:36)
[2023-06-18 12:48] LABS: Basophils % (A) 0 %; Eosinophils # (A) 0.3 k/uL (0-0.7); Eosinophils % (A) 1 %; HCT 36.4 % (34.0-46.0); HGB 12.3 gm/dL (11.4-16.0); Lymphocytes # (A) 1.1 k/uL (1.0-4.8); Lymphocytes % (A) 5 %; MCH 30.7 pg (25.0-35.0); MCHC 33.8 g/dL (31.0-37.0); Monocytes # (A) 0.9 k/uL (0-1.0); Monocytes % (A) 5 %; Neutrophils # (A) 17.2 k/uL (1.3-7.7); Neutrophils % (A) 87 %; Platelet Count 342 k/uL (150-450); RDW 12.3 % (11.5-15.5); WBC 19.6 k/uL (3.8-10.6)
[2023-06-18 12:57] LABS: ALT 22 U/L (4-34); AST 22 U/L (14-36); African American GFR (CKD) 61 (>60 ml/min/1.73 sqM); Albumin 3.6 g/dL (3.5-5.0); Alkaline Phosphatase 85 U/L (38-126); Amylase 51 U/L (30-110); Anion Gap 8 mmol/L; Blood Urea Nitrogen 22 mg/dL (7-17); Calcium 10.1 mg/dL (8.4-10.2); Carbon Dioxide 25 mmol/L (22-30); Chloride 99 mmol/L (98-107); Glucose 222 mg/dL (74-99); Lipase 60 U/L (23-300); Non-African American GFR(CKD) 53 (>60 ml/min/1.73 sqM); Sodium 132 mmol/L (137-145); Total Protein 6.3 g/dL (6.3-8.2)
[2023-06-18 13:44] LABS: Appearance,Urine Cloudy (Clear); Bacteria,Urine Many /hpf; Bilirubin,Urine Negative (Negative); Blood,Urine Moderate (Negative); Color,Urine Light Yellow; Glucose,Urine (UA) 2+ (Negative); Hyaline Casts,Urine 1 /lpf (0-2); Ketones,Urine Negative (Negative); Leukocyte Esterase,Urine Large (Negative); Mucus,Urine Rare /hpf; Nitrite,Urine Positive (Negative); Protein,Urine Trace (Negative); RBC,Urine 46 /hpf (0-5); Specific Gravity,Urine 1.014 (1.001-1.035); Squamous Epithelial Cell,Urine 2 /hpf (0-4); Urobilinogen,Urine <2.0 mg/dL (<2.0); WBC,Urine 39 /hpf (0-5)
--- NOTE | 2023-06-18 14:45 | CT ---
EXAMINATION TYPE: CT abdomen pelvis w con CT DLP: 807.6 mGycm, Automated exposure control for dose reduction was used. DATE OF EXAM: 06/18/2023 2:13 PM COMPARISON: None CLINICAL INDICATION:Female, 83 years old with history of Abdominal pain; abd pain TECHNIQUE: Axial CT abdomen pelvis w con;Sagittal and coronal reformats were created on a separate w orkstation. Contrast used:100 mL of Isovue 300 with IV Contrast, (none if empty) Oral contrast used: without Oral Contrast (none if empty) FINDINGS: LOWER CHEST: Unremarkable ABDOMEN LIVER: Unremarkable GALLBLADDER AND BILE DUCTS: Calcified gallstone in the gallbladder lumen near the gallbladder neck. PANCREAS: Unremarkable. SPLEEN: Unremarkable. ADRENAL GLANDS: Nodular appearance of right adrenal gland measuring 18 x 16 mm. The left adrenal glan d has a normal morphologic appearance. KIDNEYS AND URETERS: Mild left hydronephrosis secondary obstructing 5 mm calculus at the ureteropelvi c junction. Additional nonobstructing left renal calculi measuring up to 4 mm. No right renal calculi . No obstructive uropathy. Right simple appearing renal cysts. PELVIS BLADDER: Unremarkable REPRODUCTIVE: The uterus is surgically absent. ABDOMEN & PELVIS STOMACH AND BOWEL: No evidence of bowel obstruction. PERITONEUM/RETROPERITONEUM: No evidence of pneumoperitoneum or free fluid. VASCULATURE: Mild atherosclerotic calcifications are present throughout the abdominal aorta and its b ranches. No evidence of aortic aneurysm. MUSCULOSKELETAL: No acute osseous abnormalities LYMPH NODES: No gross evidence for lymphadenopathy. SOFT TISSUE/ABDOMINAL WALL: Unremarkable IMPRESSION: 1. Mild left hydronephrosis secondary obstructing 5 mm calculus at the ureteropelvic junction. Addit ional nonobstructing left renal calculi measuring up to 4 mm. 2. Nodular appearance of the right adrenal gland. Consider correlation with outside institutions for stability. Consider adrenal mass protocol and/or MRI for further evaluation. 3. Cholelithiasis. 4. Right simple appearing renal cysts.
[2023-06-18] MEDS: SODIUM CHLORIDE 0.9% 500 ML 500 ML IV ONE (14:54)
[2023-06-18] MEDS: cefTRIAXone IN SWFI 1,000 MG/10 ML SYRINGE IVP STA (14:57)
[2023-06-18] MEDS: SODIUM CHLORIDE 0.9% 1,000 ML IV ONE ×2 (15:46→16:56)
[2023-06-18] MEDS ORDERED: PROPOFOL 10 MG/ML 20 ML VIAL IV ONE (16:54)
[2023-06-18] MEDS ORDERED: MIDAZOLAM 2 MG/2 ML VIAL ONE (16:54)
[2023-06-18] MEDS ORDERED: LIDOCAINE 1% INJ 10MG/ML (20 ML MDV) ONE (16:54)
[2023-06-18] MEDS ORDERED: fentaNYL (PF) 50 MCG/ML 2 ML AMP ONE (16:54)
--- NOTE | 2023-06-18 16:58 | P.GSCN ---
History of Present Illness Consult date: 06/18/23 Reason for Consult: UTI, left hydronephrosis Requesting physician: Kanwal Lyon History of present illness: The patient is an 83-year-old white female who presented with a 3-week history of abdominal pain. Laboratory studies showed evidence of leukocytosis, and urinalysis was consistent with a UTI. In the course of her evaluation, a CT scan was obtained revealing evidence of left hydronephrosis due to a 5 mm left U PJ/proximal ureteral calculus. The CT scan also shows a 4 to 5 mm left lower pole renal calculus, as well as a possible third calculus within the mid to distal portion of the ureter. The patient denies any prior history of urolithiasis. She may have been treated for UTI in the remote past. Review of Systems - Constitutional Denies chills, Denies fever - Gastrointestinal Reports abdominal pain, Reports nausea, Reports vomiting - Genitourinary Genitourinary: Reports kidney stones, Denies dysuria, Denies hematuria Past Medical History Past Medical History: Hyperlipidemia, Hypertension, Osteoarthritis (OA) Additional Past Medical History / Comment(s): Heart murmur. "Borderline sugars, no treatment". Glaucoma. History of Any Multi-Drug Resistant Organisms: None Reported Past Surgical History: Joint Replacement Additional Past Surgical History / Comment(s): Partial hysterectomy, right knee replacement. Past Anesthesia/Blood Transfusion Reactions: No Reported Reaction Past Psychological History: No Psychological Hx Reported Smoking Status: Never smoker Past Alcohol Use History: Occasional Past Drug Use History: None Reported - Past Family History Mother Family Medical History: No Reported History Medications and Allergies Home Medications Medication Instructions Recorded Confirmed Type Celecoxib [CeleBREX] 200 mg PO Q48H 11/24/18 06/18/23 History Irbesartan/Hydrochlorothiazide 1 tab PO DAILY 11/24/18 06/18/23 History [Irbesartan-Hctz 150-12.5 mg Tb] Simvastatin [Zocor] 20 mg PO HS 11/24/18 06/18/23 History Brimonidine Tartrate [Alphagan P 1 drop LEFT EYE TID 06/18/23 06/18/23 History 0.2% Ophth Soln] Dorzolamide-Timol 2.23%/0.68% 1 drop LEFT EYE BID 06/18/23 06/18/23 History [Cosopt] Latanoprost [Latanoprost 0.005%] 1 drop LEFT EYE DAILY 06/18/23 06/18/23 History Allergies Allergy/AdvReac Type Severity Reaction Status Date / Time No Known Allergies Allergy Verified 06/18/23 15:59 Surgical - Exam Vital Signs Temp Pulse Resp BP Pulse Ox 98.0 F 67 18 134/66 97 06/18/23 10:43 06/18/23 10:43 06/18/23 10:43 06/18/23 10:43 06/18/23 10:43 - General well developed, well nourished, moderate distress - Respiratory normal respiratory effort - Abdomen Abdomen: soft, tender (Mild diffuse tenderness), no masses, no guarding, no rigid, no rebound - Psychiatric oriented to time, oriented to person, oriented to place, speech is normal, memory intact Results - Labs 06/18/23 11:03 06/18/23 11:03 Abnormal Lab Results - Last 24 Hours (Table) 06/18/23 06/18/23 06/18/23 Range/Units 11:03 11:03 13:33 WBC 19.6 H (3.8-10.6) k/uL Neutrophils # 17.2 H (1.3-7.7) k/uL Sodium 132 L (137-145) mmol/L BUN 22 H (7-17) mg/dL Glucose 222 H (74-99) mg/dL Urine Appearance Cloudy H (Clear) Urine Protein Trace H (Negative) Urine Glucose (UA) 2+ H (Negative) Urine Blood Moderate H (Negative) Urine Nitrite Positive H (Negative) Ur Leukocyte Esterase Large H (Negative) Urine RBC 46 H (0-5) /hpf Urine WBC 39 H (0-5) /hpf Urine WBC Clumps Few H (None) /hpf Urine Bacteria Many H (None) /hpf Urine Mucus Rare H (None) /hpf Diabetes panel 06/18/23 Range/Units 11:03 Sodium 132 L (137-145) mmol/L Potassium 4.0 (3.5-5.1) mmol/L Chloride 99 (98-107) mmol/L Carbon Dioxide 25 (22-30) mmol/L BUN 22 H (7-17) mg/dL Creatinine 1.00 (0.52-1.04) mg/dL Glucose 222 H (74-99) mg/dL Calcium 10.1 (8.4-10.2) mg/dL AST 22 (14-36) U/L ALT 22 (4-34) U/L Alkaline Phosphatase 85 (38-126) U/L Total Protein 6.3 (6.3-8.2) g/dL Albumin 3.6 (3.5-5.0) g/dL Calcium panel 06/18/23 Range/Units 11:03 Calcium 10.1 (8.4-10.2) mg/dL Albumin 3.6 (3.5-5.0) g/dL Pituitary panel 06/18/23 Range/Units 11:03 Sodium 132 L (137-145) mmol/L Potassium 4.0 (3.5-5.1) mmol/L Chloride 99 (98-107) mmol/L Carbon Dioxide 25 (22-30) mmol/L BUN 22 H (7-17) mg/dL Creatinine 1.00 (0.52-1.04) mg/dL Glucose 222 H (74-99) mg/dL Calcium 10.1 (8.4-10.2) mg/dL Adrenal panel 06/18/23 Range/Units 11:03 Sodium 132 L (137-145) mmol/L Potassium 4.0 (3.5-5.1) mmol/L Chloride 99 (98-107) mmol/L Carbon Dioxide 25 (22-30) mmol/L BUN 22 H (7-17) mg/dL Creatinine 1.00 (0.52-1.04) mg/dL Glucose 222 H (74-99) mg/dL Calcium 10.1 (8.4-10.2) mg/dL Total Bilirubin 1.0 (0.2-1.3) mg/dL AST 22 (14-36) U/L ALT 22 (4-34) U/L Alkaline Phosphatase 85 (38-126) U/L Total Protein 6.3 (6.3-8.2) g/dL Albumin 3.6 (3.5-5.0) g/dL - Imaging CT scan - abdomen: report reviewed, image reviewed Assessment and Plan (1) Calculus of ureter Current Visit: Yes Status: Acute Code(s): N20.1 - CALCULUS OF URETER SNOMED Code(s): 38842756 (2) Calculus of kidney Current Visit: Yes Status: Acute Code(s): N20.0 - CALCULUS OF KIDNEY SNOMED Code(s): 32699189 (3) Hydronephrosis with renal and ureteral calculous obstruction Current Visit: Yes Status: Acute Code(s): N13.2 - HYDRONEPHROSIS WITH RENAL AND URETERAL CALCULOUS OBSTRUCTION SNOMED Code(s): 868343157 (4) Urinary tract infection Current Visit: Yes Status: Acute Code(s): N39.0 - URINARY TRACT INFECTION, SITE NOT SPECIFIED SNOMED Code(s): 71018021 Plan: The patient is being admitted and will be treated with IV hydration and IV antibiotics. I had a lengthy discussion with the patient and her family, explaining the rationale for placement of a left ureteral stent to relieve ureteral obstruction. She would then require a secondary procedure in several weeks, once the infection has cleared, to remove the obstructing calculus. Potential risks associated with stent placement include anesthesia, ureteral injury, and inability to successfully place the stent. Time with Patient: Greater than 30
[2023-06-18] MEDS: IOPAMIDOL-370 100ML BTL MISCELLANE ONE (17:10)
--- NOTE | 2023-06-18 17:27 | P.OP ---
Date of Procedure: 06/18/23 Preoperative Diagnosis: Left hydronephrosis secondary to left ureteral calculus Postoperative Diagnosis: Same Procedure(s) Performed: Cystoscopy, left retrograde pyelogram, left ureteral stent insertion Anesthesia: MAC Surgeon: Zhen Shetty Estimated Blood Loss (ml): 0 IV fluids (ml): 300 Pathology: none sent Condition: stable Disposition: PACU Indications for Procedure: The patient is an 83-year-old white female who presented with a 3-week history of abdominal pain. Laboratory studies showed evidence of leukocytosis, and urinalysis was consistent with a UTI. In the course of her evaluation, a CT scan was obtained revealing evidence of left hydronephrosis due to a 5 mm left UPJ/proximal ureteral calculus. The CT scan also shows a 4 to 5 mm left lower pole renal calculus, as well as a possible third calculus within the mid to distal portion of the ureter. She has received IV antibiotics and now comes for stent insertion. Operative Findings: Obstructing left proximal ureteral calculus. Successful ureteral stent insertion. Description of Procedure: The patient was taken to the operating room and placed in the dorsolithotomy position, with legs supported in Dayne stirrups. The external genitalia was prepped and draped sterilely. The 30 lens was used to introduce the 22-Dutch Stortz cystoscopic sheath through the urethra and into the bladder under direct vision. The bladder was examined in its entirety. Both ureteral orifices were of normal anatomic location and configuration. No tumors or foreign bodies were seen. Using a 10 Dutch cone-tip catheter, a left retrograde pyelogram was performed. The distal two thirds of the ureter appeared normal. The calculus was present within the left proximal ureter, and appeared to be obstructing. The calculus was radiolucent. A 0.035 inch Glidewire was passed through the cystoscope. The left ureteral orifice was cannulated, and the Glidewire was slowly advanced beyond the calculus and up to the renal pelvis. A 24 cm, 6-Dutch double-J ureteral stent was placed over the wire. Proper stent positioning was verified fluoroscopically and endoscopically. Cloudy urine drained through the stent. With the beak of the cystoscope immediately adjacent to the distal end of the stent, urine was collected and sent for culture and sensitivity. The bladder was emptied and the cystoscope removed. The patient tolerated the procedure well was taken to the recovery room in stable condition.
--- NOTE | 2023-06-18 17:56 | FL ---
EXAMINATION TYPE: FL urography retrograde Intraoperative/procedural fluoroscopic services were provid ed. Total fluoroscopy time is 8 seconds with a total of 3 submitted images to PACS. Please see the op erative/procedural note for further details. DAP: 0.9525 mGym2
[2023-06-18] MEDS: ATORVASTATIN 10 MG TAB PO SCH (21:41)
[2023-06-18] MEDS: DORZOLAMIDE-TIMOLOL 2.23%/0.68 10ML BTL LEFT EYE SCH (21:41)
[2023-06-18] MEDS: BRIMONIDINE TARTRATE 0.2% DROPS 5 ML BTL LEFT EYE SCH (22:25)
[2023-06-18] MEDS ORDERED: DEXTROSE 50% SYRINGE 50 ML IVP PRN ×2 (22:45)
--- NOTE | 2023-06-18 22:48 | P.HPIM ---
History of Present Illness H&P Date: 06/18/23 Chief Complaint: Abdominal pain Patient is a 83-year-old female with a past medical history of hypertension, hyperlipidemia, osteoarthritis and glaucoma presents to ER with complaints of abdominal pain for the past 3 weeks. Patient states that she was having upper abdominal pain and also on the side of the abdomen on both sides. She has been drinking plenty of water as per family physician. She recently came back from [place]. Symptoms have been worsening today which made her to come to ER. Patient also felt nauseous and vomited 1 and was today. Denies any radiation of the pain to the groin. No complaints of chest pain or shortness of breath. No fever no chills. No cough or sputum production. Denies any dysuria or hematuria. No prior history of renal stones or gallbladder stones. EKG on admission showed sinus rhythm with occasional supraventricular premature complexes. CT of abdomen pelvis showed mild left hydronephrosis secondary to obstructing 5 mm calculus at the ureteropelvic junction. Additional nonobstructing left renal calculi measuring up to 4 mm Nodular appearance of the right adrenal gland consider correlation with outside initiations for stability. Cholelithiasis Right simple appearing renal cyst. Laboratory data showed WBC 19.6 hemoglobin 12.3 and platelets 342 Sodium 132 potassium 4.0 chloride 99 bicarb is 25 BUN 22 and creatinine 1.0 and blood sugar 222 Urinalysis showed cloudy with trace protein 2+ glucose moderate blood and po sitive nitrate and large leukocyte esterase with elevated RBCs and WBCs.. Review of Systems Constitutional: Patient denies any fever or chills . No generalized weakness or weight loss. Abdomen: Patient does have nausea and 1 episode of vomiting. No diarrhea. Patient does have abdominal pain/flank pain. Cardiovascular: Patient denies any chest pain or short of breath no palpitations. Respiratory: patient denied any cough is from production. No shortness of kavin th Neurologic: Patient denied any numbness or tingling headache. Musculoskeletal: Patient denies any complaints of joint swelling or deformity. Skin: Negative Psychiatric: Negative Endocrine: No heat or cold intolerance. No recent weight gain. Genitourinary: No dysuria or hematuria. All other 14 point ROS negative except the above Past Medical History Past Medical History: Hyperlipidemia, Hypertension, Osteoarthritis (OA) Additional Past Medical History / Comment(s): Heart murmur. "Borderline sugars, no treatment". Glaucoma. History of Any Multi-Drug Resistant Organisms: None Reported Past Surgical History: Joint Replacement Additional Past Surgical History / Comment(s): Partial hysterectomy, right knee replacement. Past Anesthesia/Blood Transfusion Reactions: No Reported Reaction Past Psychological History: No Psychological Hx Reported Smoking Status: Never smoker Past Alcohol Use History: Occasional Past Drug Use History: None Reported - Past Family History Mother Family Medical History: No Reported History Medications and Allergies Home Medications Medication Instructions Recorded Confirmed Type Celecoxib [CeleBREX] 200 mg PO Q48H 11/24/18 06/18/23 History Irbesartan/Hydrochlorothiazide 1 tab PO DAILY 11/24/18 06/18/23 History [Irbesartan-Hctz 150-12.5 mg Tb] Simvastatin [Zocor] 20 mg PO HS 11/24/18 06/18/23 History Brimonidine Tartrate [Alphagan P 1 drop LEFT EYE TID 06/18/23 06/18/23 History 0.2% Ophth Soln] Dorzolamide-Timol 2.23%/0.68% 1 drop LEFT EYE BID 06/18/23 06/18/23 History [Cosopt] Latanoprost [Latanoprost 0.005%] 1 drop LEFT EYE DAILY 06/18/23 06/18/23 History Allergies Allergy/AdvReac Type Severity Reaction Status Date / Time No Known Allergies Allergy Verified 06/18/23 15:59 Physical Exam Vitals: Vital Signs Temp Pulse Pulse Resp BP BP Pulse Ox 06/18/23 18:18 98.6 F 73 16 153/80 99 06/18/23 18:00 72 17 141/61 98 06/18/23 17:45 98.8 F 64 16 143/60 97 06/18/23 17:35 65 16 133/58 100 06/18/23 17:26 99.2 F 70 16 147/58 100 06/18/23 16:52 68 16 150/86 98 06/18/23 16:07 98.6 F 68 16 153/80 99 06/18/23 15:00 67 16 137/61 98 06/18/23 12:38 63 20 130/60 98 06/18/23 12:34 60 16 98 06/18/23 10:43 98.0 F 67 18 134/66 97 Intake and Output 06/18/23 06/18/23 06/18/23 06:59 14:59 22:59 Intake Total 400 Output Total 200 Balance 200 Intake: IV 400 Output: Urine 200 Estimated Blood Loss 0 Other: Weight 62.142 kg 62.142 kg PHYSICAL EXAMINATION: Patient is lying in the bed comfortably, no acute distress, awake alert and oriented.. HEENT: Normocephalic. Neck is supple. Pupils reactive. Nostrils clear. Oral cavity is moist. Neck reveals no JVD, carotid bruits, or thyromegaly. CHEST EXAMINATION: Trachea is central. Symmetrical expansion. Lung adair clear to auscultation and percussion. CARDIAC: Normal S1, S2 with no gallops. No murmurs ABDOMEN: Soft. Bowel sounds normal. No organomegaly. No abdominal bruits. Extremities: reveal no edema. No clubbing or cyanosis Neurologically awake, alert, oriented x3 with well-coordinated movements. No focal deficits noted Skin: No rash or skin lesions. Psychiatric: Coperative. Nonsuicidal Musculoskeletal: No joint swelling or deformity. Normal range of motion. Results CBC & Chem 7: 06/18/23 11:03 06/18/23 11:03 Labs: Abnormal Lab Results - Last 24 Hours (Table) 06/18/23 06/18/23 06/18/23 Range/Units 11:03 11:03 13:33 WBC 19.6 H (3.8-10.6) k/uL Neutrophils # 17.2 H (1.3-7.7) k/uL Sodium 132 L (137-145) mmol/L BUN 22 H (7-17) mg/dL Glucose 222 H (74-99) mg/dL Urine Appearance Cloudy H (Clear) Urine Protein Trace H (Negative) Urine Glucose (UA) 2+ H (Negative) Urine Blood Moderate H (Negative) Urine Nitrite Positive H (Negative) Ur Leukocyte Esterase Large H (Negative) Urine RBC 46 H (0-5) /hpf Urine WBC 39 H (0-5) /hpf Urine WBC Clumps Few H (None) /hpf Urine Bacteria Many H (None) /hpf Urine Mucus Rare H (None) /hpf Thrombosis Risk Factor Assmnt - DVT/VTE Prophylaxis DVT/VTE Prophylaxis: Pharmacologic Prophylaxis ordered - Choose All That Apply Any of the Below Risk Factors Present?: Yes Other Risk Factors: Yes Each Risk Factor Represents 3 Points: Age 75 years or older Other congenital or acquired thrombophilia - If yes, enter type in comment: Yes Thrombosis Risk Factor Assessment Total Risk Factor Score: 3 Thrombosis Risk Factor Assessment Level: Moderate Risk Assessment and Plan Assessment: Abdominal pain due to left ureteral obstructing 5 mm calculus Mild left hydronephrosis secondary to above Acute urinary tract infection Nodular appearance of the right adrenal gland. Outpatient MRI with adrenal mass protocol was recommended. Cholelithiasis Leukocytosis Hypertension controlled Hyperlipidemia Osteoarthritis with history of bilateral knee replacement Borderline diabetes diet controlled at home Glaucoma GI and DVT prophylaxis with PPI and heparin subcu Plan: Patient will be continued on IV hydration with normal saline. Started on ceftriaxone 1 g daily and follow-up urine culture report and blood cultures. Current pain management. Urology has seen the patient due to obstructing renal calculus and is planning for procedure sometime today. Patient will be started on home blood pressure medications and insulin sliding scale for better blood sugar control. follow-up A1c level. Continue with home medications. Continue to follow closely. Time with Patient: Greater than 30
--- NOTE | 2023-06-19 06:56 | P.PN ---
Progress Note - Text Progress Note Date: 06/18/23 care was transitioned to [facility] , due to covered Primary doctor. patient was seen by [facility] upon admission note reviewed. will continue follow up on June 19 2023 per admitting provider note (copied from admission note) 83 year old female presented with Abdominal pain due to left ureteral obstructing 5 mm calculus Mild left hydronephrosis secondary to above Acute urinary tract infection Nodular appearance of the right adrenal gland. Outpatient MRI with adrenal mass protocol was recommended. Cholelithiasis Leukocytosis Hypertension controlled Hyperlipidemia Osteoarthritis with history of bilateral knee replacement Borderline diabetes diet controlled at home Glaucoma GI and DVT prophylaxis with PPI and heparin subcu Plan: Patient will be continued on IV hydration with normal saline. Started on ceftriaxone 1 g daily and follow-up urine culture report and blood cultures. Current pain management. Urology has seen the patient due to obstructing renal calculus and is planning for procedure sometime today. Patient will be started on home blood pressure medications and insulin sliding scale for better blood sugar control. follow-up A1c level. Continue with home medications. Continue to follow closely.
[2023-06-19 08:01] LABS: Basophils % (A) 0 %; Eosinophils % (A) 0 %; HCT 35.8 % (34.0-46.0); HGB 11.8 gm/dL (11.4-16.0); Lymphocytes # (A) 1.5 k/uL (1.0-4.8); Lymphocytes % (A) 11 %; MCHC 32.9 g/dL (31.0-37.0); MCV 94.3 fL (80.0-100.0); Mean Platelet Volume 8.3; Monocytes # (A) 0.9 k/uL (0-1.0); Monocytes % (A) 7 %; Neutrophils # (A) 11.4 k/uL (1.3-7.7); Neutrophils % (A) 81 %; Platelet Count 402 k/uL (150-450); RDW 12.1 % (11.5-15.5); WBC 14.1 k/uL (3.8-10.6)
[2023-06-19] MEDS: HEPARIN SODIUM,PORCINE 5,000 UNIT/ML 1 ML VIAL SQ SCH (08:24)
[2023-06-19] MEDS: LOSARTAN 50 MG TAB PO SCH (08:24)
[2023-06-19] MEDS: FAMOTIDINE 20 MG TAB PO SCH (08:24)
[2023-06-19] MEDS: hydroCHLOROthiazide 12.5 MG CAP PO SCH (08:24)
[2023-06-19 08:30] LABS: Glucose,Whole Blood 244 mg/dL (70-110)
[2023-06-19] MEDS: LATANOPROST 0.005% OPHTH DROPS 2.5 ML BTL LEFT EYE SCH (08:34)
[2023-06-19] MEDS: INSULIN ASPART (NovoLOG) 100 UNIT/ML VIAL SQ SCH (08:35)
[2023-06-19 09:10] LABS: African American GFR (CKD) 79 (>60 ml/min/1.73 sqM); Anion Gap 8 mmol/L; Blood Urea Nitrogen 15 mg/dL (7-17); Calcium 9.6 mg/dL (8.4-10.2); Carbon Dioxide 22 mmol/L (22-30); Chloride 106 mmol/L (98-107); Glucose 131 mg/dL (74-99); Non-African American GFR(CKD) 69 (>60 ml/min/1.73 sqM); Potassium 3.5 mmol/L (3.5-5.1); Sodium 136 mmol/L (137-145)
--- NOTE | 2023-06-19 10:33 | P.PN ---
Subjective Progress Note Date: 06/19/23 Patient was transitioned care from [facility] on 06/18. 83 year old F with PMH of HTN, HLD, OA, glaucoma presented to the ED for abdominal pain that has been ongoing for the past 3 weeks associated with N/V. In the ED she underwent extensive evaluation. BP 134/66, HD 67, RR 18, T 98F, 97% on RA. CBC and CMP performed significant for WBC 19.6, Na 132, BUN 22, glu 222. Lactic acid 1.7. Amylase and Lipase within normal limits. UA positive nitrite and large LE. EKG sinus rhythm with PVCs. CT AP mild left hydronephrosis with obstructing 5 mm calculus in the UPJ, nonobstructing 4 mm left renal calculi, nodular right adrenal gland, cholelithiasis, renal cysts. Started on Rocephin 2g IV QD. Urology consulted, underwent cystoscopy, left retrograde pyelogram, left ureteral stent insertion on 06/17. 06/18 Patient was seen and examined. Abdominal pain resolved. No complaints. CBC WBC 14.1. BMP Na 136, glu 131. UCx and BCx pending. General: non toxic, no distress, appears at stated age Derm: warm, dry Head: atraumatic, normocephalic, symmetric Eyes: EOMI, no lid lag, anicteric sclera Mouth: no lip lesion, mucus membranes moist Cardiovascular: S1S2 reg, no murmur Lungs: CTA bilateral, no rhonchi, no rales , no accessory muscle use Ext: no gross muscle atrophy, no edema, no contractures Neuro: no focal neuro deficits Psych: Alert, oriented, appropriate affect Based on my assessment of this patient, this patient meets a high complexity level of care. Patient has an acute diagnosis of abdominal pain secondary to UTI found to have hydronephrosis left side due to nephrolithiasis that poses a threat to life or bodily function. UTI: Continue Rocephin 2g IV QD. Follow UCx BCx. Left hydronephrosis due to obstructing calculus in the UPJ status post stent placement by Urology on 06/17 Diabetes mellitus with hyperglycemia: Most recent A1c 6.3. ISS. Accuchecks ACHS. Hypoglycemic precautions. CODE STATUS: FULL CODE DVT Prophylaxis: Heparin SQ GI Prophylaxis: Designated medical POA if patient is not able to make medical decisions for themselves: I have reviewed the following change management consultant notes: Urology, OR report I have reviewed the results of the following tests: CBC. BMP. POC glucose. I have ordered the following tests: I have discussed the care of this patient with the following independent historian: I have independently interpreted the following test below: I have discussed the management of this patient with the following physician: Objective - Vital Signs Vital signs: Vital Signs Temp 99.4 F 06/19/23 03:23 Pulse 70 06/19/23 03:23 Resp 20 06/19/23 03:23 BP 119/63 06/19/23 03:23 Pulse Ox 95 06/19/23 03:23 FiO2 Intake & Output 06/18/23 06/19/23 06/19/23 18:59 06:59 18:59 Intake Total 400 650 Output Total 200 Balance 200 650 Weight 62.142 kg Intake: IV 400 Blood Product 650 Output: Urine 200 Estimated Blood Loss 0 Other: Voiding Method Toilet # Voids 2 - Labs CBC & Chem 7: 06/19/23 06:41 06/19/23 06:41 Labs: Abnormal Lab Results - Last 24 Hours (Table) 06/18/23 06/18/23 06/18/23 Range/Units 11:03 11:03 13:33 WBC 19.6 H (3.8-10.6) k/uL Neutrophils # 17.2 H (1.3-7.7) k/uL Sodium 132 L (137-145) mmol/L BUN 22 H (7-17) mg/dL Glucose 222 H (74-99) mg/dL POC Glucose (mg/dL) (70-110) mg/dL Urine Appearance Cloudy H (Clear) Urine Protein Trace H (Negative) Urine Glucose (UA) 2+ H (Negative) Urine Blood Moderate H (Negative) Urine Nitrite Positive H (Negative) Ur Leukocyte Esterase Large H (Negative) Urine RBC 46 H (0-5) /hpf Urine WBC 39 H (0-5) /hpf Urine WBC Clumps Few H (None) /hpf Urine Bacteria Many H (None) /hpf Urine Mucus Rare H (None) /hpf 06/19/23 06/19/23 Range/Units 06:41 08:23 WBC 14.1 H (3.8-10.6) k/uL Neutrophils # 11.4 H (1.3-7.7) k/uL Sodium (137-145) mmol/L BUN (7-17) mg/dL Glucose (74-99) mg/dL POC Glucose (mg/dL) 244 H (70-110) mg/dL Urine Appearance (Clear) Urine Protein (Negative) Urine Glucose (UA) (Negative) Urine Blood (Negative) Urine Nitrite (Negative) Ur Leukocyte Esterase (Negative) Urine RBC (0-5) /hpf Urine WBC (0-5) /hpf Urine WBC Clumps (None) /hpf Urine Bacteria (None) /hpf Urine Mucus (None) /hpf
[2023-06-19 11:30] LABS: Glucose,Whole Blood 133 mg/dL (70-110)
--- NOTE | 2023-06-19 12:36 | P.PN ---
Subjective Progress Note Date: 06/19/23 Principal diagnosis: Acute pyelonephritis complicated by left proximal ureteral calculus Patient underwent left ureteral stent insertion yesterday and is receiving ceftriaxone. Urine and blood cultures are pending. The patient is asymptomatic and specifically denies flank pain and hematuria. She remains afebrile. She does report increased urinary frequency and was reassured that this may be due to the ureteral stent. Objective - Vital Signs Vital signs: Vital Signs Temp 99.4 F 06/19/23 03:23 Pulse 70 06/19/23 03:23 Resp 20 06/19/23 03:23 BP 119/63 06/19/23 03:23 Pulse Ox 95 06/19/23 03:23 FiO2 Intake & Output 06/18/23 06/19/23 06/19/23 18:59 06:59 18:59 Intake Total 400 650 Output Total 200 Balance 200 650 Weight 62.142 kg Intake: IV 400 Blood Product 650 Output: Urine 200 Estimated Blood Loss 0 Other: Voiding Method Toilet # Voids 2 - Constitutional General appearance: Present: average body habitus, cooperative, no acute distress - Psychiatric Psychiatric: Present: A&O x's 3 - Labs CBC & Chem 7: 06/19/23 06:41 06/19/23 06:41 Labs: Abnormal Lab Results - Last 24 Hours (Table) 06/18/23 06/18/23 06/18/23 Range/Units 11:03 11:03 13:33 WBC 19.6 H (3.8-10.6) k/uL Neutrophils # 17.2 H (1.3-7.7) k/uL Sodium 132 L (137-145) mmol/L BUN 22 H (7-17) mg/dL Glucose 222 H (74-99) mg/dL Urine Appearance Cloudy H (Clear) Urine Protein Trace H (Negative) Urine Glucose (UA) 2+ H (Negative) Urine Blood Moderate H (Negative) Urine Nitrite Positive H (Negative) Ur Leukocyte Esterase Large H (Negative) Urine RBC 46 H (0-5) /hpf Urine WBC 39 H (0-5) /hpf Urine WBC Clumps Few H (None) /hpf Urine Bacteria Many H (None) /hpf Urine Mucus Rare H (None) /hpf 06/19/23 Range/Units 06:41 WBC 14.1 H (3.8-10.6) k/uL Neutrophils # 11.4 H (1.3-7.7) k/uL Sodium (137-145) mmol/L BUN (7-17) mg/dL Glucose (74-99) mg/dL Urine Appearance (Clear) Urine Protein (Negative) Urine Glucose (UA) (Negative) Urine Blood (Negative) Urine Nitrite (Negative) Ur Leukocyte Esterase (Negative) Urine RBC (0-5) /hpf Urine WBC (0-5) /hpf Urine WBC Clumps (None) /hpf Urine Bacteria (None) /hpf Urine Mucus (None) /hpf Assessment and Plan (1) Calculus of ureter Current Visit: Yes Status: Acute Code(s): N20.1 - CALCULUS OF URETER SNOMED Code(s): 83980085 (2) Calculus of kidney Current Visit: Yes Status: Acute Code(s): N20.0 - CALCULUS OF KIDNEY SNOMED Code(s): 24372983 (3) Hydronephrosis with renal and ureteral calculous obstruction Current Visit: Yes Status: Acute Code(s): N13.2 - HYDRONEPHROSIS WITH RENAL AND URETERAL CALCULOUS OBSTRUCTION SNOMED Code(s): 721722780 (4) Urinary tract infection Current Visit: Yes Status: Acute Code(s): N39.0 - URINARY TRACT INFECTION, SITE NOT SPECIFIED SNOMED Code(s): 75557423 Plan: Continue ceftriaxone, pending culture results. Once the cultures are complete, the patient may be discharged home on appropriate oral antibiotics. Arrangements will be made for her to undergo cystoscopy, left ureteral stent removal with left ureteroscopic removal of her left ureteral and renal calculi.
[2023-06-19 16:52] LABS: Glucose,Whole Blood 177 mg/dL (70-110)
[2023-06-19 20:58] LABS: Glucose,Whole Blood 162 mg/dL (70-110)
[2023-06-20 05:48] LABS: Glucose,Whole Blood 149 mg/dL (70-110)
--- NOTE | 2023-06-20 11:44 | P.PN ---
Subjective Progress Note Date: 06/20/23 Patient was transitioned care from [facility] on 06/18. 83 year old F with PMH of HTN, HLD, OA, glaucoma presented to the ED for abdominal pain that has been ongoing for the past 3 weeks associated with N/V. In the ED she underwent extensive evaluation. BP 134/66, HD 67, RR 18, T 98F, 97% on RA. CBC and CMP performed significant for WBC 19.6, Na 132, BUN 22, glu 222. Lactic acid 1.7. Amylase and Lipase within normal limits. UA positive nitrite and large LE. EKG sinus rhythm with PVCs. CT AP mild left hydronephrosis with obstructing 5 mm calculus in the UPJ, nonobstructing 4 mm left renal calculi, nodular right adrenal gland, cholelithiasis, renal cysts. Started on Rocephin 2g IV QD. Urology consulted, underwent cystoscopy, left retrograde pyelogram, left ureteral stent insertion on 06/17. 06/18 Patient was seen and examined. Abdominal pain resolved. No complaints. CBC WBC 14.1. BMP Na 136, glu 131. UCx and BCx pending. 06/19 Patient was seen and examined. Feeling well. No complaints. UCx growing GNB. BCx prelim negative so far. General: non toxic, no distress, appears at stated age Derm: warm, dry Head: atraumatic, normocephalic, symmetric Eyes: EOMI, no lid lag, anicteric sclera Mouth: no lip lesion, mucus membranes moist Cardiovascular: S1S2 reg, no murmur Lungs: CTA bilateral, no rhonchi, no rales , no accessory muscle use Ext: no gross muscle atrophy, no edema, no contractures Neuro: no focal neuro deficits Psych: Alert, oriented, appropriate affect Based on my assessment of this patient, this patient meets a high complexity level of care. Patient has an acute diagnosis of abdominal pain secondary to UTI found to have hydronephrosis left side due to nephrolithiasis that poses a threat to life or bodily function. UTI: Continue Rocephin 2g IV QD. Follow final UCx BCx. Left hydronephrosis due to obstructing calculus in the UPJ status post stent placement by Urology on 06/17 Diabetes mellitus with hyperglycemia: Most recent A1c 6.3. ISS. Accuchecks ACHS. Hypoglycemic precautions. Plans for discharge home after final UCx results are back, likely tomorrow. CODE STATUS: FULL CODE DVT Prophylaxis: Heparin SQ GI Prophylaxis: Designated medical POA if patient is not able to make medical decisions for themselves: I have reviewed the following java developer consultant notes: I have reviewed the results of the following tests: UCx. BCx. I have ordered the following tests: I have discussed the care of this patient with the following independent historian: I have independently interpreted the following test below: I have discussed the management of this patient with the following physician: Objective - Vital Signs Vital signs: Vital Signs Temp 98.5 F 06/20/23 07:08 Pulse 66 06/20/23 07:08 Resp 18 06/20/23 07:08 BP 129/75 06/20/23 07:08 Pulse Ox 97 06/20/23 07:08 FiO2 Intake & Output 06/19/23 06/20/23 06/20/23 18:59 06:59 18:59 Output Total 400 Balance -400 Output: Urine 400 Other: # Voids 1 - Labs CBC & Chem 7: 06/19/23 06:41 06/19/23 06:41 Labs: Abnormal Lab Results - Last 24 Hours (Table) 06/19/23 06/19/23 06/19/23 Range/Units 06:41 16:50 20:57 POC Glucose (mg/dL) 177 H 162 H (70-110) mg/dL Hemoglobin A1c 6.5 H (<=6.0) % 06/20/23 Range/Units 05:46 POC Glucose (mg/dL) 149 H (70-110) mg/dL Hemoglobin A1c (<=6.0) % Microbiology - Last 24 Hours (Table) 06/18/23 15:40 Blood Culture - Preliminary Blood 06/18/23 15:30 Blood Culture - Preliminary Blood 06/18/23 17:19 Urine Culture - Preliminary Urine,Suprapubic Gram Neg Bacilli
[2023-06-20 11:59] LABS: Glucose,Whole Blood 144 mg/dL (70-110)
[2023-06-20 16:48] LABS: Glucose,Whole Blood 203 mg/dL (70-110)
[2023-06-20 21:35] LABS: Glucose,Whole Blood 196 mg/dL (70-110)
[2023-06-21 03:18] VITALS: PULSE 65; RESP 18
[2023-06-21 06:09] LABS: Glucose,Whole Blood 130 mg/dL (70-110)
[2023-06-21 08:43] VITALS: BP 152/75; TEMP 98.7
--- NOTE | 2023-06-21 10:42 | P.DS ---
Providers Date of admission: 06/18/23 15:23 Expected date of discharge: 06/21/23 Attending physician: Meseret Pizarro MD Consults: 06/18/23 15:23 Consult Physician Urgent Consulting Provider: Zhen Shetty Consult Reason/Comments: Infected kidney stone Do you want consulting provider notified?: Yes Primary care physician: Roosevelt Ngo MD Hospital Course: Discharge Diagnosis: Urinary tract infection Leukocytosis Obstructive uropathy Mild left hydronephrosis secondary to obstructing 5 mm calculus Right adrenal gland nodularity Type 2 diabetes, A1c 6.5. Hyponatremia Hospital Course: 83 year old F with PMH of HTN, HLD, OA, glaucoma presented to the ED for abdominal pain that has been ongoing for the past 3 weeks associated with N/V. In the ED she underwent extensive evaluation. BP 134/66, HD 67, RR 18, T 98F, 97% on RA. CBC and CMP performed significant for WBC 19.6, Na 132, BUN 22, glu 222. Lactic acid 1.7. Amylase and Lipase within normal limits. UA positive nitrite and large LE. EKG sinus rhythm with PVCs. CT AP mild left hydronephrosis with obstructing 5 mm calculus in the UPJ, nonobstructing 4 mm left renal calculi, nodular right adrenal gland, cholelithiasis, renal cysts. Started on Rocephin 2g IV QD. Urology consulted, underwent cystoscopy, left retrograde pyelogram, left ureteral stent insertion on 06/17. Urine cultures positive for E. coli pansensitive. Patient transition from ceftriaxone to cefdinir. Being discharged home with oral antibiotics. Follow-up with urology for cystoscopy, left ureteral stent removal with left ureteroscopic removal of her left ureteral and renal calculi. Patient's blood sugars are well-controlled given her A1c of 6.5. Follow-up outpatient with PCP. Patient seen and examined at bedside. Vital signs reviewed and stable. General: Nontoxic, no distress, appears at stated age Derm: Warm, dry Head: Atraumatic, normocephalic, symmetric Eyes: EOMI, no lid lag, anicteric sclera Mouth: No lip lesion, mucus membranes moist Cardiovascular: S1S2 reg, no murmur Lungs: CTA bilateral, no rhonchi, no rales, no accessory muscle use Abdominal: Soft, nontender to palpation, no guarding, no appreciable organ omegaly Ext: No gross muscle atrophy, no edema, no contractures Neuro: CN II-XI grossly intact, no focal neuro deficits Psych: Alert, oriented, appropriate affect A total of 33 minutes of time were spent preparing this complex discharge summary. Patient was discharged on 06/21/2023 at 943. Patient Condition at Discharge: Stable Plan - Discharge Summary Discharge Rx Participant: Yes New Discharge Prescriptions: New Cefdinir 300 mg PO Q12HR #14 cap Continue Simvastatin [Zocor] 20 mg PO HS Celecoxib [CeleBREX] 200 mg PO Q48H Irbesartan/Hydrochlorothiazide [Irbesartan-Hctz 150-12.5 mg Tb] 1 tab PO DAILY Dorzolamide-Timol 2.23%/0.68% [Cosopt] 1 drop LEFT EYE BID Brimonidine Tartrate [Alphagan P 0.2% Ophth Soln] 1 drop LEFT EYE TID Latanoprost [Latanoprost 0.005%] 1 drop LEFT EYE DAILY Discharge Medication List Celecoxib [CeleBREX] 200 mg PO Q48H 11/24/18 [History] Irbesartan/Hydrochlorothiazide [Irbesartan-Hctz 150-12.5 mg Tb] 1 tab PO DAILY 11/24/18 [History] Simvastatin [Zocor] 20 mg PO HS 11/24/18 [History] Brimonidine Tartrate [Alphagan P 0.2% Ophth Soln] 1 drop LEFT EYE TID 06/18/23 [History] Dorzolamide-Timol 2.23%/0.68% [Cosopt] 1 drop LEFT EYE BID 06/18/23 [History] Latanoprost [Latanoprost 0.005%] 1 drop LEFT EYE DAILY 06/18/23 [History] Cefdinir 300 mg PO Q12HR #14 cap 06/21/23 [Rx] Follow up Appointment(s)/Referral(s): Zhen Shetty MD [STAFF PHYSICIAN] - 1 Week (The office will call with follow-up apointment date and time. ) Roosevelt Ngo MD [Primary Care Provider] - 07/04/23 4:00 pm Patient Instructions/Handouts: Kidney Stones (DC), Urinary Tract Infection in Women (DC) Activity/Diet/Wound Care/Special Instructions: Please see Urology and PCP.
[2023-06-21 11:44] VITALS: BMI 21.4
== END 2023-06-21 12:57 | disposition home or self-care (01) | DRG 660 ==
LOC: EC 10:41 → 5NMEDONC 15:23 → 4SSUR 16:27
PROVIDERS: ADMIT Internal Medicine; ATTEND Internal Medicine
PROC: 0T778DZ Dilation of Left Ureter with Intraluminal Device, Via Natural or Artificial Opening Endoscopic (ICD-10-PCS; principal; 2023-06-18 17:00)
DX: N13.6 Pyonephrosis (principal); E87.1 Hypo-osmolality and hyponatremia; M19.90 Unspecified osteoarthritis, unspecified site; N28.1 Cyst of kidney, acquired; I10 Essential (primary) hypertension; H40.9 Unspecified glaucoma; E78.5 Hyperlipidemia, unspecified; E11.65 Type 2 diabetes mellitus with hyperglycemia; E27.8 Other specified disorders of adrenal gland; B96.20 Unspecified Escherichia coli [E. coli] as the cause of diseases classified elsewhere; Z96.653 Presence of artificial knee joint, bilateral; Z79.01 Long term (current) use of anticoagulants; Z79.1 Long term (current) use of non-steroidal anti-inflammatories (NSAID)
CPT/HCPCS: 36415; 74177; 74420; 80048; 80053; 81001; 82150; 83036; 83605; 83690; 85025; 87040; 87077; 87086; 87186; 96374; 99291

== ENCOUNTER 2023-07-14 07:18 | Day surgery (SDC) | payer MEDICARE ==
[2023-07-11 12:51] VITALS: BMI 28.3
--- NOTE | 2023-07-13 22:50 | P.GSHP ---
History of Present Illness H&P Date: 07/13/23 Chief Complaint: Abdominal pain The patient is an 83-year-old white female who presented last month with a 3- week history of abdominal pain. Laboratory studies showed evidence of leukocytosis, and urinalysis was consistent with a UTI. In the course of her evaluation, a CT scan was obtained revealing evidence of left hydronephrosis due to a 5 mm left UPJ/proximal ureteral calculus. The CT scan also showed a 4 to 5 mm left lower pole renal calculus, as well as a possible third calculus within the mid to distal portion of the ureter. The patient denies any prior history of urolithiasis. She underwent cystoscopy with left ureteral stent insertion on June 18, 2023. Urine culture showed an E. coli UTI, for which she was treated. - Constitutional Constitutional: Denies chills, Denies fever - Gastrointestinal Gastrointestinal: Reports abdominal pain, Reports nausea, Reports vomiting Past Medical History Past Medical History: Hyperlipidemia, Hypertension, Osteoarthritis (OA) Additional Past Medical History / Comment(s): Heart murmur, "Borderline sugars, no treatment", Glaucoma, TORN RETINA ON LEFT, KIDNEY STONE History of Any Multi-Drug Resistant Organisms: None Reported Past Surgical History: Hysterectomy, Joint Replacement Additional Past Surgical History / Comment(s): right knee replacement, LEFT URETERAL STENT INSERTION Past Anesthesia/Blood Transfusion Reactions: No Reported Reaction Past Psychological History: No Psychological Hx Reported Smoking Status: Never smoker Past Alcohol Use History: Occasional Past Drug Use History: None Reported - Past Family History Mother Family Medical History: No Reported History Medications and Allergies Home Medications Medication Instructions Recorded Confirmed Type Celecoxib [CeleBREX] 200 mg PO Q48H 11/24/18 07/11/23 History Irbesartan/Hydrochlorothiazide 1 tab PO DAILY 11/24/18 07/11/23 History [Irbesartan-Hctz 150-12.5 mg Tb] Simvastatin [Zocor] 20 mg PO DAILY 11/24/18 07/11/23 History Brimonidine Tartrate [Alphagan P 1 drop LEFT EYE TID 06/18/23 07/11/23 History 0.2% Ophth Soln] Dorzolamide-Timol 2.23%/0.68% 1 drop LEFT EYE BID 06/18/23 07/11/23 History [Cosopt] Latanoprost [Latanoprost 0.005%] 1 drop LEFT EYE DAILY 06/18/23 07/11/23 History Allergies Allergy/AdvReac Type Severity Reaction Status Date / Time No Known Allergies Allergy Verified 07/11/23 11:59 Surgical - Exam - General well developed, well nourished, no distress - Respiratory normal respiratory effort - Abdomen Abdomen: soft, no masses, no guarding, no rigid, no rebound - Genitourinary normal external genitalia (Use well it could be hydronephrosis with a normal BUN /creatinine is not such a concern) - Psychiatric oriented to time (But cannot be for sure because renal), oriented to person, oriented to place, speech is normal, memory intact Results - Imaging CT scan - abdomen: report reviewed, image reviewed Assessment and Plan (1) Calculus of ureter Status: Acute Code(s): N20.1 - CALCULUS OF URETER SNOMED Code(s): 15723757 (2) Calculus of kidney Status: Acute Code(s): N20.0 - CALCULUS OF KIDNEY SNOMED Code(s): 52269280 Plan: Cystoscopy, left ureteral stent removal, left ureteroscopy with Holmium laser lithotripsy and possible stone basketing. The procedure has been reviewed in detail with the patient. She is aware of potential risks, which include anesthesia, bleeding, infection, ureteral injury, and inability to remove all calculi.
[~2023-07-14 07:18] MED LIST changes: -ACETAMINOPHEN TAB 500 MG TAB PO ONE; -DEXAMETHASONE SOD PHOSPHATE 10 MG/ML 1 ML VIAL IV ONE; +HYDROmorphone 0.5 MG/0.5 ML SYRINGE IVP PRN; -LIDOCAINE 1% 20 ML VIAL (10MG/ML) FOR IV START INTRADERMA PRN; -MELOXICAM 7.5 MG TAB PO ONE; -MIDAZOLAM 2 MG/2 ML VIAL IV PRN; -ONDANSETRON 4 MG/2 ML VIAL IVP ONE; -SCOPOLAMINE 1.5MG/72HR PATCH TRANSDERM ONE; -TRANEXAMIC ACID 1,000 MG in SODIUM CHLORIDE 0.9% 100 ML IVPB ONE
--- NOTE | 2023-07-14 08:04 | XR ---
EXAMINATION TYPE: XR KUB DATE OF EXAM: 07/14/2023 COMPARISON: NONE HISTORY: Preop TECHNIQUE: One view abdominal series FINDINGS: The osseous structures are intact. The bowel gas pattern is nonspecific. Scoliosis with severe degen erative change of the spine. Arthropathy of the SI joints, bilateral hips and pubic symphysis. Calcif ications in the pelvis appear vascular. Right kidney: No definite calcifications. Left kidney: Double-J ureteral stent appears in good positi on with a lower pole 3 mm calculus. There is an additional calculus overlying the proximal portion of the stent measuring a diameter of 3.5 mm.. Additional punctate calcification overlying the distal po rtion of the stent just inferior to the SI joint could represent an additional 2 mm calculus. IMPRESSION: 1. Left ureteral stent with left-sided single 3 mm lower pole calculus. 2. There is a calcification overlying the proximal stent measuring 3.5 mm. Additional punctate 2 mm c alcification overlying the distal stent could represent additional tiny ureteral calculus
[2023-07-14] MEDS: LACTATED RINGERS 1,000 ML IV SCH (08:26)
[2023-07-14] MEDS: ONDANSETRON 4 MG/2 ML VIAL IVP ONE (08:27)
[2023-07-14] MEDS: DEXAMETHASONE SOD PHOSPHATE 4 MG/ML 1 ML VIAL IV ONE (08:28)
[2023-07-14] MEDS: LIDOCAINE 1% (10MG/ML) FOR IV START INTRADERMA ONE (08:33)
[2023-07-14 08:35] LABS: Glucose,Whole Blood 134 mg/dL (70-110)
[2023-07-14] MEDS ORDERED: PROPOFOL 10 MG/ML 20 ML VIAL IV ONE (09:03)
[2023-07-14] MEDS ORDERED: fentaNYL (PF) 50 MCG/ML 2 ML AMP ONE (09:03)
[2023-07-14] MEDS ORDERED: LIDOCAINE 1% INJ 10MG/ML (20 ML MDV) ONE (09:03)
[2023-07-14] MEDS ORDERED: GLYCOPYRROLATE 0.2 MG/ML 2 ML VIAL ONE (09:03)
[2023-07-14] MEDS ORDERED: PHENYLEPHRINE-0.9% NACL SYG 1,000 MCG/10 ML SYRINGE ONE (09:03)
--- NOTE | 2023-07-14 10:08 | P.OP ---
Date of Procedure: 07/14/23 Preoperative Diagnosis: Left renal calculus, left ureteral calculus Postoperative Diagnosis: Same Procedure(s) Performed: Cystoscopy, left ureteral stent removal, left ureteroscopy with Holmium laser lithotripsy and stone basketing Anesthesia: SHON Surgeon: Zhen Shetty Estimated Blood Loss (ml): 5 IV fluids (ml): 500 Pathology: other (Left renal calculus, sent for chemical analysis) Condition: stable Disposition: PACU Indications for Procedure: The patient is an 83-year-old white female who presented last month with a 3- week history of abdominal pain. Laboratory studies showed evidence of leukocytosis, and urinalysis was consistent with a UTI. In the course of her evaluation, a CT scan was obtained revealing evidence of left hydronephrosis due to a 5 mm left UPJ/proximal ureteral calculus. The CT scan also showed a 4 to 5 mm left lower pole renal calculus, as well as a possible third calculus within the mid to distal portion of the ureter. The patient denies any prior history of urolithiasis. She underwent cystoscopy with left ureteral stent insertion on June 18, 2023. Urine culture showed an E. coli UTI, for which she was treated. Operative Findings: Left proximal ureteral calculus. Left lower pole renal calculus. Both fragmented and removed completely. Description of Procedure: The patient was taken to the operating room and placed in the dorsolithotomy position, with legs supported in Dayne stirrups. The external genitalia was prepped and draped sterilely. The 30 lens was used to introduce the 21-[place]an Mcnair cystoscopic sheath through the urethra and into the bladder under direct vision. The bladder was unremarkable. Grasping forceps were used to grasp the distal end of the left ureteral stent, which was removed along with the cystoscope. The Mcnair semirigid ureteroscope was advanced into the bladder, and the left ureteral orifice was cannulated. The ureteroscope was slowly advanced under direct vision, up to the left proximal ureter where a calculus was identified, measuring approximately 5 mm in size. The 272 micron Holmium laser probe was passed through the ureteroscope, and lithotripsy was performed. After fragmenting the calculus, a 1.9 [place]an 0 tip nitinol basket was used to remove all the of the calculus fragments. The ureter was then inspected. There was no evidence of ureteral trauma. The ureteroscope was withdrawn under direct vision. The Mcnair Cobra flexible ureteroscope was advanced into the bladder. A 0.035 inch Glidewire was passed through the ureteroscope. The left ureteral orifice was cannulated, and the Glidewire was advanced up to the left renal pelvis. The ureteroscope was then advanced over the wire, up to the mid ureter. The ureteroscope was then advanced under direct vision, into the kidney. The calculus was identified within a lower pole calyx. The 1.9 [place]an nitinol basket was used to grasp of the calculus, and relocated into the renal pelvis. With the calculus within the basket, lithotripsy was performed in a dusting mode to laser the edges of the calculus and decrease it in size. Once the calculus was down to a size of approximately 3 mm, it was withdrawn along with the ureteroscope. The cystoscope was replaced into the bladder, and all calculus fragments were removed. These were saved and sent for chemical analysis. The bladder was emptied and the cystoscope removed. The patient tolerated the procedure well and was taken to the recovery room in stable condition. [facility] Report: Procedure Acuity: Elective Stone Size and Location: 5 mm, left proximal ureter Ureteral Dilation: No Ureteral Access Sheath Used: No Stone Sent for Analysis: Yes All Stones/Fragments Were Removed with a Basket: Yes Complications: No Preoperative Antibiotics Given: Yes Stent Placed: No Discharge Medications: None
--- NOTE | 2023-07-14 10:08 | FL ---
EXAMINATION TYPE: FL guidance operating room DATE OF EXAM: 07/14/2023 HISTORY: Fluoroscopy time Total dose area product (DAP) in uGy*m?, mGy*cm? (or similar): 0.67570 IMPRESSION: 1. Fluoroscopy time.
[2023-07-14 10:41] VITALS: TEMP 99.1
[2023-07-14 11:25] VITALS: BP 154/69; PULSE 54; RESP 16
== END 2023-07-14 11:30 | disposition home or self-care (01) ==
LOC: OR 07:18
PROVIDERS: ATTEND Urology
DX: N20.2 Calculus of kidney with calculus of ureter (principal); I10 Essential (primary) hypertension; E78.5 Hyperlipidemia, unspecified; M19.90 Unspecified osteoarthritis, unspecified site; Z90.710 Acquired absence of both cervix and uterus; Z98.890 Other specified postprocedural states; Z79.899 Other long term (current) drug therapy; Z96.653 Presence of artificial knee joint, bilateral
CPT/HCPCS: 82365; 74018; 52353; C1769; J1100; J0690; J2405; J2001; J3010; J2704; J2371

== ENCOUNTER → 2023-08-16 | Outpatient (CLI) | payer MEDICARE ==
--- NOTE | 2023-08-16 10:08 | XR ---
EXAMINATION TYPE: XR KUB DATE OF EXAM: 08/16/2023 COMPARISON: 07/24/2023 HISTORY: Ureteral calculus TECHNIQUE: One view abdominal series FINDINGS: Multilevel degenerative disc disease. Bilateral hypertrophic uropathy. Bilateral SI joint arthr opathy and pubic symphysis arthropathy. The bowel gas pattern is nonspecific. Right kidney: Obscured by bowel content. Left kidney: Obscured by bowel content. Left ureteral stent has been removed. Calcifications in the pelvis are stable. IMPRESSION: 1. Limited exam demonstrates the proximal left ureteral calcification no longer identified. There is a 2 mm calcification just inferior to the left SI joint. This did overlie the ureteral stent on prior exam. This is stable.
--- NOTE | 2023-08-16 11:14 | US ---
EXAMINATION TYPE: US kidneys/renal and bladder DATE OF EXAM: 08/16/2023 COMPARISON: CT 2023 CLINICAL INDICATION: Female, 83 years old with history of N13.2 HYDRONEPHROSIS WITH RENAL AND URETERA L CALCU; Patient had lithotripsy and stent 1 month ago EXAM MEASUREMENTS: Right Kidney: 10.0 x 4.7 x 4.8 cm Left Kidney: 10.9 x 5.7 x 4.3 cm Right Kidney: 1.4cm cyst medial mid pole Left Kidney: wnl Bladder: wnl Bilateral Jets seen: no Gallbladder: 1.7cm stone There is no evidence for hydronephrosis at this point in time. No nephrolithiasis is seen. Simple cy sts identified within the medial mid pole of the right kidney. No solid masses are identified. Cortic omedullary differentiation is maintained. No shadowing renal stones identified. Gallstone identified . The urinary bladder is anechoic. Bilateral ureteral jets are not seen. IMPRESSION: 1. Resolution of previously seen left hydronephrosis. 2. No shadowing renal stones identified. 3. Cholelithiasis.
== END | disposition home or self-care (01) ==
LOC: RADUSWWP 08:48
PROVIDERS: ATTEND Urology
DX: N13.2 Hydronephrosis with renal and ureteral calculous obstruction (principal); K80.20 Calculus of gallbladder without cholecystitis without obstruction; M25.80 Other specified joint disorders, unspecified joint
CPT/HCPCS: 74018; 76770

== ENCOUNTER 2024-09-03 11:45 | Emergency (ER) | payer MEDICARE ==
[2024-09-03 11:58] VITALS: RESP 18
--- NOTE | 2024-09-03 12:36 | XR ---
EXAMINATION TYPE: XR chest 2V DATE OF EXAM: 09/03/2024 12:30 PM COMPARISON: None TECHNIQUE: XR chest 2V Frontal and lateral views of the chest. CLINICAL INDICATION:Female, 84 years old with history of fall, pain; FINDINGS: Lungs/Pleura: There is no evidence of pleural effusion, focal consolidation, or pneumothorax. Pulmonary vascularity: Unremarkable. Heart/mediastinum: Cardiomediastinal silhouette is enlarged and stable. Atherosclerotic calcificatio ns are seen in the aorta. Musculoskeletal: Multiple level degenerative disc disease changes seen throughout the spine. Anterior wedging of the midthoracic spine, probable T6 vertebral body. No gross evidence for retropulsion. Ap proximately 10% height loss anteriorly. IMPRESSION: Age-indeterminate anterior wedge compression deformity of the mid thoracic spine, probable T6 vertebr al body. Approximately 10% height loss and no retropulsion. Correlate with point tenderness. [facility], , 09/03/2024 12:34 PM
--- NOTE | 2024-09-03 12:40 | XR ---
EXAMINATION TYPE: XR knee complete RT DATE OF EXAM: 09/03/2024 12:30 PM INDICATION: Patient age:Female; 84 years old; Reason for study: fall, pain; PHH. pain COMPARISON: None. TECHNIQUE: The Right knee(s) was examined in Frontal, lateral and oblique projections. FINDINGS: Postsurgical changes from right knee arthroplasty with distal femoral and proximal tibial components. Hardware appears intact. No periprosthetic lucency to suggest loosening. Patella humberto. No evidence of any acute osseous pathology, soft tissue swelling, or joint effusion is noted. IMPRESSION: 1. No acute osseous pathology. 2. Postsurgical changes from right knee arthroplasty. Hardware appears intact. 3. Patella humberto. [facility], , 09/03/2024 12:38 PM
--- NOTE | 2024-09-03 12:41 | XR ---
EXAMINATION TYPE: XR shoulder complete RT DATE OF EXAM: 09/03/2024 12:30 PM INDICATION: Patient age:Female; 84 years old; Reason for study: fall, pain; pain COMPARISON: Chest radiograph of the same date TECHNIQUE: The right shoulder was examined in AP, internally rotated and scapular Y projections. . FINDINGS: No evidence of acute osseous pathology, joint dislocation, or soft tissue swelling. Mild AC joint art hropathy. The remaining portions of the visualized chest are unremarkable. IMPRESSION: 1. No acute osseous pathology. 2. Mild AC joint arthropathy. [facility], , 09/03/2024 12:39 PM
--- NOTE | 2024-09-03 13:03 | ED ---
Fall HPI - General Chief Complaint: Fall Stated Complaint: Fall/Shoulder Pain Time Seen by Provider: 09/03/24 11:46 Source: patient, RN notes reviewed Mode of arrival: EMS Limitations: no limitations - History of Present Illness Initial Comments: 84-year-old female presents emergency department with chief complaint of. She had a trip and fall she complains of right shoulder pain right rib pain and right knee pain. She had no head injury or loss conscious. She has noted complaints that she was placed in a c-collar for precaution by EMS she states s he never had any symptoms. Patient denies any back pain no hip pain she is able to ambulate no loss conscious. - Related Data Home Medications Medication Instructions Recorded Confirmed Celecoxib [CeleBREX] 200 mg PO Q48H 11/24/18 07/14/23 Irbesartan/Hydrochlorothiazide 1 tab PO DAILY 11/24/18 07/14/23 [Irbesartan-Hctz 150-12.5 mg Tb] Simvastatin [Zocor] 20 mg PO DAILY 11/24/18 07/14/23 Brimonidine Tartrate [Alphagan P 1 drop LEFT EYE TID 06/18/23 07/14/23 0.2% Ophth Soln] Dorzolamide-Timol 2.23%/0.68% 1 drop LEFT EYE BID 06/18/23 07/14/23 [Cosopt] Latanoprost [Latanoprost 0.005%] 1 drop LEFT EYE DAILY 06/18/23 07/14/23 Previous Rx's Medication Instructions Recorded Cephalexin [Keflex] 250 mg PO Q8HR #9 capsule 07/14/23 Cephalexin [Keflex] 500 mg PO Q6HR 1 Days #4 cap 07/14/23 Allergies Allergy/AdvReac Type Severity Reaction Status Date / Time No Known Allergies Allergy Verified 09/03/24 11:57 Review of Systems ROS Statement: Those systems with pertinent positive or pertinent negative responses have been documented in the HPI. ROS Other: All systems not noted in ROS Statement are negative. Past Medical History Past Medical History: Hyperlipidemia, Hypertension, Osteoarthritis (OA) Additional Past Medical History / Comment(s): Heart murmur. "Borderline sugars, no treatment". Glaucoma (left eye blured vision), kidney stones History of Any Multi-Drug Resistant Organisms: None Reported Past Surgical History: Joint Replacement Additional Past Surgical History / Comment(s): Partial hysterectomy, right knee replacement, eye surgery, Past Anesthesia/Blood Transfusion Reactions: No Reported Reaction Past Psychological History: No Psychological Hx Reported Smoking Status: Never smoker Past Alcohol Use History: Occasional Past Drug Use History: None Reported - Past Family History Mother Family Medical History: No Reported History General Exam Limitations: no limitations General appearance: alert, in no apparent distress Head exam: Present: atraumatic, normocephalic, normal inspection Eye exam: Present: normal appearance, PERRL, EOMI. Absent: scleral icterus, conjunctival injection, periorbital swelling ENT exam: Present: normal exam, mucous membranes moist Neck exam: Present: normal inspection, full ROM. Absent: tenderness, meningismus, lymphadenopathy Respiratory exam: Present: normal lung sounds bilaterally, chest wall tenderness. Absent: respiratory distress, wheezes, rales, rhonchi, stridor Cardiovascular Exam: Present: regular rate, normal rhythm, normal heart sounds. Absent: systolic murmur, diastolic murmur, rubs, gallop, clicks GI/Abdominal exam: Present: soft, normal bowel sounds. Absent: distended, tenderness, guarding, rebound, rigid Extremities exam: Present: other (Mild right short shoulder tenderness, neurovascular intact right arm, lower extremity hip nontender, right knee mild tenderness no obvious deformity neurovascular intact) Back exam: Present: full ROM. Absent: tenderness, paraspinal tenderness, vertebral tenderness Course Vital Signs 09/03/24 11:49 Temperature 97.4 F L Pulse Rate 59 L Respiratory 18 Rate Blood Pressure 140/69 O2 Sat by Pulse 96 Oximetry Medical Decision Making - Medical Decision Making Was pt. sent in by a medical professional or institution (, PA, LATIN AMERICAN STUDIES DIRECTOR, urgent care, hospital, or shelter...) When possible be specific @ -No Did you speak to anyone other than the patient for history (EMS, parent, family, police, friend...)? What history was obtained from this source @ -No Did you review nursing and triage notes (agree or disagree)? Why? @ -I reviewed and agree with nursing and triage notes Were old charts reviewed (outside hosp., previous admission, EMS record, old EKG, old radiological studies, urgent care reports/EKG's, shelter records)? Report findings @ -No old charts were reviewed Differential Diagnosis (chest pain, altered mental status, abdominal pain women, abdominal pain men, vaginal bleeding, weakness, fever, dyspnea, syncope, headache, dizziness, GI bleed, back pain, seizure, CVA, palpatations, mental health, musculoskeletal)? @ -Fall, shoulder dislocation, shoulder separation arm fracture leg fracture knee contusion hip contusion this list is not all inclusive EKG interpreted by me (3pts min.). @ -None X-rays interpreted by me (1pt min.). @ -X-ray right shoulder no acute osseous abnormality no dislocation or fracture X-ray two-view chest shows old age indeterminant compression fracture thoracic spine no other acute process X-ray right knee stable hardware no acute fracture CT interpreted by me (1pt min.). @ -None done U/S interpreted by me (1pt. min.). @ -None done What testing was considered but not performed or refused? (CT, X-rays, U/S, labs)? Why? @ -None What meds were considered but not given or refused? Why? @ -None Did you discuss the management of the patient with other professionals (professionals i.e. , PA, LATIN AMERICAN STUDIES DIRECTOR, lab, RT, psych nurse, director of social media marketing, operations trainer, teacher, aerospace engineer officer armament, transplant case manager)? Give summary @ -No Was smoking cessation discussed for >3mins.? @ -No Was critical care preformed (if so, how long)? @ -No Were there social determinants of health that impacted care today? How? (Homelessness, low income, unemployed, alcoholism, drug addiction, transportation, low edu. Level, literacy, decrease access to med. care, long term, rehab)? @ -No Was there de-escalation of care discussed even if they declined (Discuss DNR or withdrawal of care, Hospice)? DNR status @ -No What co-morbidities impacted this encounter? (DM, HTN, Smoking, COPD, CAD, Cancer, CVA, ARF, Chemo, Hep., AIDS, mental health diagnosis, sleep apnea, morbid obesity)? @ -None Was patient admitted / discharged? Hospital course, mention meds given and route, prescriptions, significant lab abnormalities, going to OR and other pertinent info. @ -Discharge patient presented for trauma chemical trip and fall patient has no thoracic tenderness to associated with acute fracture. Patient will be discharged in stable condition return for as discussed. Undiagnosed new problem with uncertain prognosis? @ -No Drug Therapy requiring intensive monitoring for toxicity (Heparin, Nitro, Insulin, Cardizem)? @ -No Were any procedures done? @ -No Diagnosis/symptom? @ -Fall, shoulder strain, knee contusion Acute, or Chronic, or Acute on Chronic? @ -Acute Uncomplicated (without systemic symptoms) or Complicated (systemic symptoms)? @ -Uncomplicated Side effects of treatment? @ -No Exacerbation, Progression, or Severe Exacerbation? @ -No Poses a threat to life or bodily function? How? (Chest pain, [place], [place], pneumonia, PE, COPD, DKA, ARF, appy, cholecystitis, CVA, Diverticulitis, Homicidal, Suicidal, threat to staff... and all critical care pts) @ -No Disposition Clinical Impression: Fall, Shoulder strain, Contusion of knee, right Disposition: HOME SELF-CARE Condition: Stable Instructions (If sedation given, give patient instructions): Shoulder Pain (ED) Additional Instructions: Please return to the Emergency Department if symptoms worsen or any other concerns. Is patient prescribed a controlled substance at d/c from ED?: No Referrals: Roosevelt Ngo MD [Primary Care Provider] - 1-2 days Angelito Avelar DO [Doctor of Osteopathic Medicine] - 1-2 days Time of Disposition: 13:03
[2024-09-03 13:32] VITALS: BP 144/66; PULSE 55; TEMP 98.1
== END 2024-09-03 13:33 | disposition home or self-care (01) ==
LOC: EC 11:45
DX: S46.011A Strain of muscle(s) and tendon(s) of the rotator cuff of right shoulder, initial encounter (principal); S80.01XA Contusion of right knee, initial encounter; W01.0XXA Fall on same level from slipping, tripping and stumbling without subsequent striking against object, initial encounter
CPT/HCPCS: 71046; 99283